=== PATIENT | female | born 1970 | race Caucasian/White ===

== ENCOUNTER → 2023-07-10 | Emergency (ER) | payer OTHER ==
[~2023-07-10] MED LIST: KETOROLAC 30 MG/ML INJ ONE; MORPHINE 4 MG/ML SYR ONE; NA CHLORIDE 0.9% 1,000 ML ONE; NA CHLORIDE 0.9% 100 ML ONE; NS KCL 20MEQ 1,000 ML IV ONE; ONDANSETRON 4 MG/2 ML VIAL ONE; PIPERACIL/TAZO 3.375 GM VIAL IV ONE
--- OUTSIDE RECORDS SUMMARY | 2023-07-10 07:27 | XMS REPORT | Continuity of Care Document ---
Author Name Unknown Address [address] [facility] [address] [place] [address] [facility] Address [address] [facility] 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 Phone Carla Torres Attending Clinician Unavailable Tabby Carrera Attending Clinician Unavailable CHRETIEN_F Attending Clinician Unavailable WATERS_S Attending Clinician Unavailable CHRETIEN_F Admitting Clinician Unavailable WATERS_S Admitting Clinician Unavailable Payers Payer Name Policy Type Policy Number Effective Date Expirati on Date Source [employer] (MEDICARE REPLACEMENT/ADV ANTAGE - HMO) [id number] [place]IC[place]: SERGEY MORSE [facility] [id number] 2009 00:00:00 MEDICARE [facility] [id number] 2009 00:00:00 [facility] MEDICAID [id number] [facility] AARP MEDICARE ADVANTAGE [employer] C1 [id number] 2020 00:00:00 [facility] Problems Condition Name Condition Details Condition Category Status Onset Date Resolution Date Last Treatment Date Treating Clinician Comments Source [id number] Psoriatic arthritis Problem [facility] [id number] Chronic fatigue Problem [facility] [id number] COVID Problem [facility] [id number] Fever, unspecifie d Problem [facility] [id number] Non-produc tive cough Problem [facility] [id number] Sleep apnea, unspecifie d type Problem [facility] [id number] Intractabl e migraine without aura and with status migrainosu s Problem [facility] Chronic pain syndrome Chronic pain disorder Problem [facility] Psoriasis Psoriasis Problem Comm on [facility] Acquired hypothyroi dism Acquired hypothyroi dism Problem [facility] [id number] Vaginal atrophy Problem [facility] Allergies, Adverse Reactions, Alerts Allergy Name Allergy Type Status Severity Reaction(s) Onset Date Inactive Date Treating Clinician Comments Source 0 Drug allergy Active hives [facility] Social History Social Habit Start Date Stop Date Quantity Comments Source History of Tobacco Use Current Smoker [facility] Sex Assigned At [facility] Smoking Status Start Date Stop Date Source Current Smoker 2023-04-28 00:00:00 [facility] Medications Ordered Medication Name Filled Medication Name Start Date Stop Date Current Medication? Ordering Clinician Indication Dosage Frequency Signature (SIG) Comments Components Source Topiramate 25 MG Topiramate 25 MG 11-15 00:00: 00 No 1{table t} BID Topiramate 25 MG Topiramate 25 MG Topiramate 25 MG 11-15 00:00: 00 No 1{table t} BID Topiramate 25 MG Topiramate 25 MG Topiramate 25 MG 11-15 00:00: 00 No 1{table t} BID Topiramate 25 MG Topiramate 25 MG Topiramate 25 MG 11-15 00:00: 00 No 1{table t} BID Topiramate 25 MG Topiramate 25 MG Topiramate 25 MG 11-15 00:00: 00 No 1{table t} BID Topiramate 25 MG Topiramate 25 MG Topiramate 25 MG 2020-11-15 00:00: 00 No 1{table t} BID Topiramate 25 MG Topiramate 25 MG Topiramate 25 MG 11-15 00:00: 00 No 1{table t} BID Topiramate 25 MG Estradiol 0.1 MG/GM Estradiol 0.1 MG/GM 11-09 00:00: 00 No QD Estradiol 0.1 MG/GM Levothyroxi ne Sodium Levothyroxi ne Sodium 09-08 00:00: 00 Yes Barb Torres 1 tablet on an empty stomach in the morning [facility] Levothyroxi ne Sodium 125 MCG Levothyroxi ne Sodium 125 MCG 09-08 00:00: 00 No QD Levothyrox ine Sodium 125 MCG Zubsolv 5.7-1.4 MG Zubsolv 5.7-1.4 MG No 1{table t_under _the_to ngue_an d_allow _to_dis solve} QD Zubsolv 5.7-1.4 MG DULoxetine HCl 20 MG DULoxetine HCl 20 MG No 1{capsu le} QD DULoxetine HCl 20 MG Levothyroxi ne Sodium 125 MCG Levothyroxi ne Sodium 125 MCG No QD Levothyrox ine Sodium 125 MCG Ondansetron HCl 8 MG Ondansetron HCl 8 MG No 1{table t_as_ne eded} QD Ondansetro n HCl 8 MG traZODone HCl 100 MG traZODone HCl 100 MG No 1{table t_at_be dtime} QD traZODone HCl 100 MG Zubsolv 5.7-1.4 MG Zubsolv 5.7-1.4 MG No 1{table t_under _the_to ngue_an d_allow _to_dis solve} QD Zubsolv 5.7-1.4 MG DULoxetine HCl 20 MG DULoxetine HCl 20 MG No 1{capsu le} QD DULoxetine HCl 20 MG Levothyroxi ne Sodium 125 MCG Levothyroxi ne Sodium 125 MCG No QD Levothyrox ine Sodium 125 MCG Ondansetron HCl 8 MG Ondansetron HCl 8 MG No 1{table t_as_ne eded} QD Ondansetro n HCl 8 MG traZODone HCl 100 MG traZODone HCl 100 MG No 1{table t_at_be dtime} QD traZODone HCl 100 MG Zubsolv 5.7-1.4 MG Zubsolv 5.7-1.4 MG No 1{table t_under _the_to ngue_an d_allow _to_dis solve} QD Zubsolv 5.7-1.4 MG DULoxetine HCl 20 MG DULoxetine HCl 20 MG No 1{capsu le} QD DULoxetine HCl 20 MG Levothyroxi ne Sodium 125 MCG Levothyroxi ne Sodium 125 MCG No QD Levothyrox ine Sodium 125 MCG Ondansetron HCl 8 MG Ondansetron HCl 8 MG No 1{table t_as_ne eded} QD Ondansetro n HCl 8 MG traZODone HCl 100 MG traZODone HCl 100 MG No 1{table t_at_be dtime} QD traZODone HCl 100 MG traZODone HCl 100 MG traZODone HCl 100 MG No 1{table t_at_be dtime} QD traZODone HCl 100 MG Levothyroxi ne Sodium 125 MCG Levothyroxi ne Sodium 125 MCG No QD Levothyrox ine Sodium 125 MCG Ondansetron HCl 8 MG Ondansetron HCl 8 MG No 1{table t_as_ne eded} QD Ondansetro n HCl 8 MG DULoxetine HCl 20 MG DULoxetine HCl 20 MG No 1{capsu le} QD DULoxetine HCl 20 MG Zubsolv 5.7-1.4 MG Zubsolv 5.7-1.4 MG No 1{table t_under _the_to ngue_an d_allow _to_dis solve} QD Zubsolv 5.7-1.4 MG traZODone HCl 100 MG traZODone HCl 100 MG No 1{table t_at_be dtime} QD traZODone HCl 100 MG Levothyroxi ne Sodium 125 MCG Levothyroxi ne Sodium 125 MCG No QD Levothyrox ine Sodium 125 MCG Ondansetron HCl 8 MG Ondansetron HCl 8 MG No 1{table t_as_ne eded} QD Ondansetro n HCl 8 MG DULoxetine HCl 20 MG DULoxetine HCl 20 MG No 1{capsu le} QD DULoxetine HCl 20 MG Zubsolv 5.7-1.4 MG Zubsolv 5.7-1.4 MG No 1{table t_under _the_to ngue_an d_allow _to_dis solve} QD Zubsolv 5.7-1.4 MG traZODone HCl 100 MG traZODone HCl 100 MG No 1{table t_at_be dtime} QD traZODone HCl 100 MG Levothyroxi ne Sodium 125 MCG Levothyroxi ne Sodium 125 MCG No QD Levothyrox ine Sodium 125 MCG Ondansetron HCl 8 MG Ondansetron HCl 8 MG No 1{table t_as_ne eded} QD Ondansetro n HCl 8 MG DULoxetine HCl 20 MG DULoxetine HCl 20 MG No 1{capsu le} QD DULoxetine HCl 20 MG Zubsolv 5.7-1.4 MG Zubsolv 5.7-1.4 MG No 1{table t_under _the_to ngue_an d_allow _to_dis solve} QD Zubsolv 5.7-1.4 MG Zubsolv 5.7-1.4 MG Zubsolv 5.7-1.4 MG No 1{table t_under _the_to ngue_an d_allow _to_dis solve} QD Zubsolv 5.7-1.4 MG traZODone HCl 100 MG traZODone HCl 100 MG No 1{table t_at_be dtime} QD traZODone HCl 100 MG Levothyroxi ne Sodium 125 MCG Levothyroxi ne Sodium 125 MCG No QD Levothyrox ine Sodium 125 MCG traZODone HCl 100 MG traZODone HCl 100 MG No 1{table t_at_be dtime} QD traZODone HCl 100 MG Estradiol 0.1 MG/GM Estradiol 0.1 MG/GM No QD Estradiol 0.1 MG/GM Zubsolv 5.7-1.4 MG Zubsolv 5.7-1.4 MG No 1{table t_under _the_to ngue_an d_allow _to_dis solve} QD Zubsolv 5.7-1.4 MG Levothyroxi ne Sodium 125 MCG Levothyroxi ne Sodium 125 MCG No QD Levothyrox ine Sodium 125 MCG traZODone HCl 100 MG traZODone HCl 100 MG No 1{table t_at_be dtime} QD traZODone HCl 100 MG Estradiol 0.1 MG/GM Estradiol 0.1 MG/GM No QD Estradiol 0.1 MG/GM Zubsolv 5.7-1.4 MG Zubsolv 5.7-1.4 MG No 1{table t_under _the_to ngue_an d_allow _to_dis solve} QD Zubsolv 5.7-1.4 MG Estradiol 0.1 MG/GM Estradiol 0.1 MG/GM No QD Estradiol 0.1 MG/GM Zubsolv 5.7-1.4 MG Zubsolv 5.7-1.4 MG No 1{table t_under _the_to ngue_an d_allow _to_dis solve} QD Zubsolv 5.7-1.4 MG Levothyroxi ne Sodium 125 MCG Levothyroxi ne Sodium 125 MCG No QD Levothyrox ine Sodium 125 MCG traZODone HCl 100 MG traZODone HCl 100 MG No 1{table t_at_be dtime} QD traZODone HCl 100 MG Zubsolv 5.7-1.4 MG Zubsolv 5.7-1.4 MG No 1{table t_under _the_to ngue_an d_allow _to_dis solve} QD Zubsolv 5.7-1.4 MG traZODone HCl 100 MG traZODone HCl 100 MG No 1{table t_at_be dtime} QD traZODone HCl 100 MG Estradiol 0.1 MG/GM Estradiol 0.1 MG/GM No QD Estradiol 0.1 MG/GM Levothyroxi ne Sodium 125 MCG Levothyroxi ne Sodium 125 MCG No QD Levothyrox ine Sodium 125 MCG Zubsolv 5.7-1.4 MG Zubsolv 5.7-1.4 MG No 1{table t_under _the_to ngue_an d_allow _to_dis solve} QD Zubsolv 5.7-1.4 MG traZODone HCl 100 MG traZODone HCl 100 MG No 1{table t_at_be dtime} QD traZODone HCl 100 MG Estradiol 0.1 MG/GM Estradiol 0.1 MG/GM No QD Estradiol 0.1 MG/GM Levothyroxi ne Sodium 125 MCG Levothyroxi ne Sodium 125 MCG No QD Levothyrox ine Sodium 125 MCG Zubsolv 5.7-1.4 MG Zubsolv 5.7-1.4 MG No 1{table t_under _the_to ngue_an d_allow _to_dis solve} QD Zubsolv 5.7-1.4 MG traZODone HCl 100 MG traZODone HCl 100 MG No 1{table t_at_be dtime} QD traZODone HCl 100 MG Estradiol 0.1 MG/GM Estradiol 0.1 MG/GM No QD Estradiol 0.1 MG/GM Levothyroxi ne Sodium 125 MCG Levothyroxi ne Sodium 125 MCG No QD Levothyrox ine Sodium 125 MCG Levothyroxi ne Sodium 125 MCG Levothyroxi ne Sodium 125 MCG No QD Levothyrox ine Sodium 125 MCG Zubsolv 5.7-1.4 MG Zubsolv 5.7-1.4 MG No 1{table t_under _the_to ngue_an d_allow _to_dis solve} QD Zubsolv 5.7-1.4 MG traZODone HCl 100 MG traZODone HCl 100 MG No 1{table t_at_be dtime} QD traZODone HCl 100 MG Estradiol 0.1 MG/GM Estradiol 0.1 MG/GM No QD Estradiol 0.1 MG/GM Immunizations Ordered Immunization Name Filled Immunization Name Date Status Comments Source Flucelvax - single dose syringe Flucelvax - single dose syringe 2022-04-24 14:31:00 Completed [facility] Flucelvax - single dose syringe Flucelvax - single dose syringe Unknown Completed [facility] Flucelvax - single dose syringe Flucelvax - single dose syringe Unknown Completed [facility] Flucelvax - single dose syringe Flucelvax - single dose syringe Unknown Completed [facility] Flucelvax - single dose syringe Flucelvax - single dose syringe Unknown Completed [facility] Flucelvax (ccIIV4) - SDS - 0.5mL Flucelvax (ccIIV4) - SDS - 0.5mL Unknown Completed [facility] Flucelvax (ccIIV4) - SDS - 0.5mL Flucelvax (ccIIV4) - SDS - 0.5mL Unknown Completed [facility] Vital Signs Vital Name Observation Time Observation Value Comments Kristina moody height 2023-04-28 16:20:00 65 [in_i] Commo n [facility] weight 2023-04-28 16:20:00 150 [lb_av] Comm on [facility] temperature 2023-04-28 16:20:00 98.6 [degF] Com mon [facility] bmi 2023-04-28 16:20:00 24.96 kg/m2 Comm on [facility] height 2022-11-14 16:00:00 65 [in_i] Commo n [facility] weight 2022-11-14 16:00:00 146.6 [lb_av] Co mmon [facility] temperature 2022-11-14 16:00:00 97.3 [degF] Com [facility] bmi 2022-11-14 16:00:00 24.39 kg/m2 Comm on [facility] oximetry 2022-11-14 16:00:00 95 % Commo n [facility] respiratory rate 2022-11-14 16:00:00 15 /min [facility] blood pressure systolic 2022-11-14 16:00:00 121 mm[Hg] [facility] blood pressure diastolic 2022-11-14 16:00:00 51 mm[Hg] Common [facility] height 2022-08-15 16:20:00 65 [in_i] Commo n [facility] weight 2022-08-15 16:20:00 149 [lb_av] Comm on [facility] temperature 2022-08-15 16:20:00 97.4 [degF] Com [facility] bmi 2022-08-15 16:20:00 24.79 kg/m2 Comm on [facility] oximetry 2022-08-15 16:20:00 97 % Commo n [facility] respiratory rate 2022-08-15 16:20:00 16 /min [facility] blood pressure systolic 2022-08-15 16:20:00 119 mm[facility]Hg[facility] blood pressure diastolic 2022-08-15 16:20:00 61 mm[Hg] [facility] height 2022-04-24 14:20:00 65 [in_i] Commo n [facility] weight 2022-04-24 14:20:00 145 [lb_av] Comm on [facility] temperature 2022-04-24 14:20:00 98.4 [degF] Com mon [facility] bmi 2022-04-24 14:20:00 24.13 kg/m2 Comm on [facility] oximetry 2022-04-24 14:20:00 98 % Commo n [facility] respiratory rate 2022-04-24 14:20:00 16 /min [facility] blood pressure systolic 2022-04-24 14:20:00 110 mm[Hg] [facility] blood pressure diastolic 2022-04-24 14:20:00 57 mm[Hg] [facility] height 2022-02-22 14:00:00 65 [in_i] Commo n [facility] weight 2022-02-22 14:00:00 152.2 [lb_av] Co mmon [facility] temperature 2022-02-22 14:00:00 97.6 [degF] Com mon [facility] bmi 2022-02-22 14:00:00 25.32 kg/m2 Comm on [facility] oximetry 2022-02-22 14:00:00 98 % Commo n [facility] respiratory rate 2022-02-22 14:00:00 16 /min [facility] blood pressure systolic 2022-02-22 14:00:00 136 mm[Hg] [facility] blood pressure diastolic 2022-02-22 14:00:00 60 mm[Hg] [facility] height 2022-02-22 14:40:00 65 [in_i] Commo n [facility] weight 2022-02-22 14:40:00 152.2 [lb_av] Co mmon [facility] temperature 2022-02-22 14:40:00 97.6 [degF] Com mon [facility] bmi 2022-02-22 14:40:00 25.32 kg/m2 Comm on [facility] oximetry 2022-02-22 14:40:00 98 % Commo n [facility] respiratory rate 2022-02-22 14:40:00 16 /min [facility] blood pressure systolic 2022-02-22 14:40:00 136 mm[Hg] [facility] blood pressure diastolic 2022-02-22 14:40:00 60 mm[Hg] [facility] Encounters Start Date/Time End Date/Time Encounter Type Admission Type Attending [facility] Care Department Encounter ID Source 2022-07-22 13:57:01 Outpatient Carla Torres [facility] [id number] [facility] 2022-04-22 14:31:00 [facility] [id number] [facility] 2022-02-22 07:53:00 Outpatient [facility] [id number] [facility] 2022-02-20 11:29:00 Outpatient Tabby Carrera [facility] [id number] [facility] 2022-02-05 10:17:00 Outpatient Tabby Carrera [facility] [id number] [facility] 2021-07-11 14:02:55 Outpatient Carla Torres [facility] [id number] [facility] 2021-07-11 14:02:24 Outpatient Carla Torres [facility] [id number] [facility] 2021-07-11 12:54:30 Outpatient Carla Torres [facility] [id number] [facility] 2023-04-28 00:00:00 2023-04-28 00:00:00 OFFICE VISIT ESTAB PT LEVEL 3 [facility] [id number] [facility] 2023-03-17 00:00:00 2023-03-17 00:00:00 (TEL) [facility] [id number] [facility] 2022-11-14 00:00:00 2022-11-14 00:00:00 OFFICE VISIT ESTAB PT LEVEL 3 [facility] [id number] [facility] 2022-09-20 00:00:00 2022-09-20 00:00:00 (TEL) [facility] [id number] [facility] 2022-08-15 00:00:00 2022-08-15 00:00:00 OFFICE VISIT ESTAB PT LEVEL 4 [facility] [id number] [facility] 2022-07-26 00:00:00 2022-07-26 00:00:00 (TEL) [facility] [id number] [facility] 2022-04-24 00:00:00 2022-04-24 00:00:00 OFFICE VISIT EST PT LEVEL 3 [facility] [id number] [facility] 2022-02-22 00:00:00 2022-02-22 00:00:00 OFFICE VISIT EST PT LEVEL 3 [facility] [id number] [facility] 2022-02-22 00:00:00 2022-02-22 00:00:00 SUB ANNUAL [facility] WELLNESS VISIT [facility] [id number] [facility] 2022-02-22 00:00:00 2022-02-22 00:00:00 (TEL) [facility] [id number] [facility] 2022-02-13 00:00:00 2022-02-13 00:00:00 (TEL) [facility] [id number] [facility] 2022-02-05 00:00:00 2022-02-05 00:00:00 Outpatient CHRETIEN_F [facility] [id number] [facility] 2022-02-05 00:00:00 2022-02-05 00:00:00 (TEL) [facility] [id number] [facility] 2022-02-05 00:00:00 2022-02-05 00:00:00 (TEL) [facility] [id number] [facility] 2021-04-16 03:01:00 2021-04-16 03:01:00 Outpatient WATERS_S [facility] [id number] [facility] 2021-03-06 00:00:00 2021-03-06 00:00:00 (TEL) [facility] [id number] [facility] 2020-12-19 00:00:00 2020-12-19 00:00:00 Outpatient [facility] [id number] [facility] 2020-11-15 00:00:00 2020-11-15 00:00:00 Outpatient [facility] [id number] [facility] 2020-11-09 00:00:00 2020-11-09 00:00:00 Outpatient [facility] [id number] [facility] 2018-01-19 14:46:00 2018-01-19 14:46:00 [facility] [id number] [facility] 2018-01-13 11:54:00 2018-01-13 11:54:00 [facility] [id number] [facility] 2017-11-14 14:21:00 2017-11-14 14:21:00 Outpatient [facility] [id number] [facility] 2017-11-06 14:20:00 2017-11-06 14:20:00 Outpatient [facility] Medicine [id number] [facility] 2017-09-08 16:21:00 2017-09-08 16:21:00 Outpatient [facility] [id number] [facility] 2017-09-02 14:15:00 2017-09-02 14:15:00 Outpatient [facility] [id number] [facility]
[2023-07-10 08:08] LABS: Hematocrit 39.2 % (36.0-45.0); Lymphocytes % 20.3 % (15.3-44.8); MPV 8.9 fL (7.6-11.3); Platelets 247 thou/uL (152-406); RBC Red Blood Cell Count 4.13 M/uL (3.86-4.86)
[2023-07-10 08:09] LABS: Absolute Lymphocytes (CBC) 1.4 K/uL (0.7-4.9)
[2023-07-10 08:20] LABS: Potassium 3.1 mEq/L (3.5-5.1)
[2023-07-10 08:21] LABS: Albumin 3.8 g/dL (3.4-5.0); Bilirubin Total 0.6 mg/dL (0.2-1.0); Protein, Total 7.9 g/dL (6.4-8.2)
--- NOTE | 2023-07-10 09:20 | RAD REPORT ---
EXAM DESCRIPTION: CT - Abdomen Pelvis W Contrast - 07/10/2023 8:05 am CLINICAL HISTORY: Abd pain;Pain COMPARISON: CT ABD PELVIS W CONTRAST dated 12/17/2013 TECHNIQUE: Thin cut axial CT imaging of the abdomen and pelvis was performed following intravenous a dministration of 100 mL Isovue 300. Multiplanar reformats were generated and reviewed. All CT scans are performed using dose optimization technique as appropriate and may include automated exposure control or mA/KV adjustment according to patient size. FINDINGS: No suspicious findings in the lung bases. The liver, spleen, adrenal glands, and pancreas show no suspicious findings. Gallbladder and biliary tree are also without suspicious finding. Gallbladder is normal in appearance. There is prominence of the common bile duct, measuring 8 mm in c aliber. The main pancreatic duct is also prominent to the level of the distal body, measuring 5 mm in caliber. Mild intrahepatic biliary ductal dilation. Symmetric renal function is seen with no hydronephrosis or suspicious renal mass. No dilated bowel loops or bowel wall thickening. Trace free ascites, may be physiologic. No free air, fluid collections, or inflammatory stranding. No hernia, mass or bulky lymphadenopathy. The urinary bladder is decompressed limiting evaluation. No suspicious bony findings. Sequelae of T12-L2 fusion/reconstruction, with bone cage in place. IMPRESSION: Prominent caliber of the common bile duct, main pancreatic duct, with mild intrahepatic biliary ductal dilation. Correlate with adenoma also, and consider additional evaluation by upper end oscopy if there is concern for obstruction at the level of the ampulla. Trace free ascites, nonspecific. No other inflammatory changes in the abdomen and pelvis.
[2023-07-10 10:05] LABS: Specific Gravity > 1.030 (1.005-1.030); Urine Bacteria None Seen /HPF (<20); Urine Bilirubin NEGATIVE (Negative); Urine Blood Trace (Negative); Urine Clarity Clear (Clear); Urine Color Light-Yellow (Yellow); Urine Glucose NEGATIVE (Negative); Urine Protein 1+ (Negative); Urine Urobilinogen Normal (Normal); Urine pH 6.5 (5.0-7.0)
--- NOTE | 2023-07-10 10:13 | RAD REPORT ---
EXAM DESCRIPTION: US - Abdomen Exam Limited - 07/10/2023 9:48 am CLINICAL HISTORY: ABD PAIN COMPARISON: Abdomen Pelvis W Contrast dated 07/10/2023 TECHNIQUE: Sonographic grayscale and color flow images of the right upper abdominal quadrant were o btained. FINDINGS: The gallbladder demonstrates no gallstones. No pericholecystic fluid or gallbladder wall t hickening. The common bile duct is prominent measuring 8 mm. Minimal intrahepatic biliary ductal dila tion. No evidence of a common duct calculus. IMPRESSION: Prominent common bile duct measuring 8 mm in caliber with minimal intrahepatic biliary d uctal dilation. No evidence of cholelithiasis or choledocholithiasis.
--- NOTE | 2023-07-10 11:16 | RAD REPORT ---
EXAM DESCRIPTION: MRI - Cholangiogram - 07/10/2023 10:48 am CLINICAL HISTORY: Side pain COMPARISON: Abdomen Exam Limited dated 07/10/2023; Abdomen Pelvis W Contrast dated 07/10/2023 TECHNIQUE: Multiplanar multisequence MRI of the abdomen, obtained without IV contrast, utilizing [employer] sequences. FINDINGS: The gallbladder is normally distended without filling defects to suggest calculi. Mild intrahepatic biliary ductal dilation. Common bile duct is dilated in caliber, 8 millimeter. Abrupt tapering at the level of the distal comm on bile duct, may suggest an impacted calculus versus a stricture or small mass. Main pancreatic duct is also prominent measuring 5 mm in caliber. The visualized aspects of the liver, spleen, adrenal glands, pancreas, and kidneys are unremarkable. Visualized aspects of the bowel are unremarkable. No suspicious osseous lesions. Trace bilateral pleural effusions IMPRESSION: Abrupt tapering at the level of the distal common bile duct, which may suggest an active calculus versus a stricture or small mass. Gastroenterology referral is recommended if not already o btained, for consideration of ERCP.
--- NOTE | 2023-07-10 11:55 | ER ---
Nurse's Notes [facility] Name: Dana Foster Age: 53 yrs Sex: Female : 1970 Arrival Date: 07/10/2023 Time: 07:25 Bed 20 Private MD: Diagnosis: Epigastric abdominal tenderness;Other specified diseases of biliary tract-dilated CBD;Hypokalemia Presentation: 07/10 07:47 Chief complaint: Patient states: RLQ pain that began yesterday, diarrhea and nausea. aa5 Denies vomiting. Coronavirus screen: diarrhea. Ebola Screen: Patient denies travel to an Ebola-affected area in the 21 days before illness onset. Initial Sepsis Screen: Does the patient meet any 2 criteria? No. Patient's initial sepsis screen is negative. Does the patient have a suspected source of infection? No. Patient's initial sepsis screen is negative. Risk Assessment: Do you want to hurt yourself or someone else? Patient reports no desire to harm self or others. Onset of symptoms was June 2023. 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 - Social history:: Smoking status: Patient reports the use of cigarette tobacco products. - Family history:: not pertinent. Screenin:59 [facility] ED Fall Risk Assessment (Adult) History of falling in the last 3 months, cm10 including since admission No falls in past 3 months (0 pts) Confusion or Disorientation No (0 pts) Intoxicated or Sedated No (0 pts) Impaired Gait No (0 pts) Mobility Assist Device Used No (0 pt) Altered Elimination No (0 pt) Score/Fall Risk Level 0 - 2 = Low Risk Oriented to surroundings, Maintained a safe environment, Hourly rounding (assess needs \T\ fall precautionary measures) done. Abuse screen: Denies threats or abuse. Denies injuries from another. Nutritional screening: No deficits noted. Tuberculosis screening: No symptoms or risk factors identified. Assessment: 07:50 General: Appears in no apparent distress. uncomfortable, Behavior is calm, cooperative. rs5 Pain: Complains of pain in right lower quadrant Pain radiates to lower back Pain currently is 8 out of 10 on a pain scale. Quality of pain is described as aching, Pain began 2-3 days ago. Is continuous. Neuro: Level of Consciousness is awake, alert, obeys commands, Oriented to person, place, time, situation. Cardiovascular: Heart tones S1 S2 present Patient's skin is warm and dry. Rhythm is regular. Respiratory: Airway is patent Respiratory effort is even, unlabored, Respiratory pattern is regular, symmetrical, Breath sounds are clear bilaterally. GI: Bowel sounds present X 4 quads. Abd is soft and non tender X 4 quads. 07:58 Reassessment: Pt to CT via wheelchair . aa5 11:30 Pain: Complains of pain in right lower quadrant Pain radiates to lower back Pain rs5 currently is 7 out of 10 on a pain scale. Quality of pain is described as aching, Is continuous. 11:30 Reassessment: Patient and/or family updated on plan of care and expected duration. Pain rs5 level reassessed. Patient is alert, oriented x 3, equal unlabored respirations, skin warm/dry/pink. 12:06 Reassessment: Patient and/or family updated on plan of care and expected duration. Pain rs5 level reassessed. Patient is alert, oriented x 3, equal unlabored respirations, skin warm/dry/pink. Patient denies pain at this time. Patient states feeling better. Patient states symptoms have improved. 12:58 Reassessment: Pt states that she does not want to change into a gown until she gets to [address] Pt states that her heart rate is normally in the 40s. 13:06 Reassessment: Pt rates pain a 4/10 on pain scale. Pt states that she would not [facility] anything for pain at this time. . 13:40 Reassessment: Pt requesting pain medicine prior to being transferred. Per Dr. Lcuero, 10 pt can receive an additional dose of Morphine 4mg IVP. Dr. Lucero made aware of pt's heart rate being 38 and states that it is ok to give medication. 13:42 Reassessment: Report given to [facility] who assumes care of patient. cm10 Pt A\T\Ox4, respirations even and unlabored at this time. Pt stable for transport at this time. Vital Signs: 07:47 BP 119 / 80; Pulse 65; Resp 16 S; Temp 98.2(TE); Pulse Ox 100% on R/A; Weight 65.77 kg aa5 (R); Height 5 ft. 6 in. (R); 08:00 BP 142 / 65; Pulse 71; Resp 16; Pulse Ox 97% ; cm10 09:00 BP 130 / 66; Pulse 43; Resp 16; Pulse Ox 97% on R/A; cm10 10:00 BP 121 / 56; Pulse 46; Resp 16; Pulse Ox 100% on R/A; cm10 11:00 BP 122 / 61; Pulse 44; Resp 16; Pulse Ox 100% on R/A; cm10 12:00 BP 124 / 66; Pulse 42; Resp 16; Pulse Ox 99% on R/A; cm10 13:00 BP 119 / 61; Pulse 38; Resp 16; Pulse Ox 99% ; cm10 07:47 Body Mass Index 23.40 (65.77 kg, 167.64 cm) aa5 ED Course: 07:27 Patient arrived in ED. mg5 07:29 Dez Lucero MD is Attending Physician. merissa 07:47 Arm band placed on. aa5 07:48 Triage completed. aa5 07:57 Initial lab(s) drawn, by me, sent to lab. Inserted saline lock: 20 gauge in right aa5 forearm, using aseptic technique. Blood collected. 08:07 CT Abd/Pelvis - IV Contrast Only In Process Unspecified. EDMS 09:20 Mihai Nascimento, RN is Primary Nurse. rs5 09:50 US Abdomen Limited In Process Unspecified. EDMS 10:50 Cholangiogram In Process Unspecified. EDMS 12:59 Patient has correct armband on for positive identification. Bed in low position. Call cm10 light in reach. Provided Education on: Need for transfer.. 13:42 No provider procedures requiring assistance completed. Patient transferred, IV remains cm10 in place. Administered Medications: 09:00 Drug: NS 0.9% IV 1000 ml IV at 1 bolus Per protocol; 1000 mL bolus Route: IV; Rate: 1 rs5 bolus; Site: right wrist; 13:36 Follow up: IV Status: Completed infusion 10 09:00 Drug: TORadol - Ketorolac IVP 15 mg IVP once Route: IVP; Site: right wrist; rs5 13:36 Follow up: Response: No adverse reaction cm10 09:00 Drug: Ondansetron IVP 4 mg IVP once; over 2 minutes Route: IVP; Site: right wrist; rs5 13:36 Follow up: Response: No adverse reaction cm10 09:00 Drug: morphine IVP or IV 4 mg IVP once over 4 mins Route: IVP; Infused Over: 4 mins; rs5 Site: right wrist; 13:36 Follow up: Response: No adverse reaction cm10 11:43 Drug: morphine IVP or IV 4 mg IVP once over 4 mins Route: IVP; Infused Over: 4 mins; rs5 Site: right wrist; 12:06 Follow up: Response: No adverse reaction; Pain is decreased rs5 11:43 Drug: Ondansetron IVP 4 mg IVP once; over 2 minutes Route: IVP; Site: right wrist; rs5 12:06 Follow up: Response: No adverse reaction rs5 12:05 Drug: Piperacillin-Tazobactam IVPB 3.375 grams IVPB once over 60 mins; (mix in NS 100 rs5 mL) Route: IVPB; Infused Over: 60 mins; Site: right wrist; 12:48 Follow up: Response: No adverse reaction; IV Status: Completed infusion me1 12:55 Drug: NS 0.9% with KCl IV 20 mEq/L 1000 ml IV at 125 ml/hr continuous Route: IV; Rate: rs5 125 ml/hr; Site: right wrist; 13:41 Follow up: Response: No adverse reaction; IV Status: Infusion continued upon transfer cm10 13:41 Drug: morphine IVP or IV 4 mg IVP once over 4 mins Route: IVP; Infused Over: 4 mins; cm10 Site: right wrist; 13:42 Follow up: Response: No adverse reaction cm10 Medication: 13:43 VIS not applicable for this client. cm10 Outcome: 11:55 ER care complete, transfer ordered by MD. craven 13:42 Transferred by [facility]. to [facility], Transfer cm10 form completed. X-rays sent w/ patient. 13:42 Condition: good 13:42 Instructed on the need for transfer, 13:44 Patient left the ED. cm10 Signatures: Dispatcher MedHoDez Guardado MD MD cha Calderon, Audri, RN RN aa5 Mihai Nascimento RN RN rs5 Aisha Elder RN RN cm10 Dana Pascual RN RN me1 Sirena Ladd mg5 Corrections: (The following items were deleted from the chart) 13:40 12:58 Reassessment: Pt states that she does not want to change into a gown until she cm10 gets to [place]. cm10
--- NOTE | 2023-07-10 11:55 | EDPHYS ---
Physician Documentation [facility] Name: Dana Foster Age: 53 yrs Sex: Female : 1970 Arrival Date: 07/10/2023 Time: : Bed 20 Private MD: ZONIA Physician Dez Lucero HPI: 07/10 09:10 This 53 yrs old Female presents to ER via Ambulatory with complaints of Side merissa Pain. 09:10 The patient presents with abdominal pain in the lower abdomen. Onset: The merissa symptoms/episode began/occurred 2 day(s) ago. The patient presents to the emergency department with nausea, vomiting, abdominal pain, of the posterior aspect of right lateral abdomen and right lower quadrant. Onset: The symptoms/episode began/occurred yesterday. Possible causes: unknown. The symptoms are aggravated by nothing. The symptoms are alleviated by nothing. Associated signs and symptoms: The patient has no apparent associated signs or symptoms. Associated signs and symptoms: none. Historical: - Allergies: 07:48 Sulfa (Sulfonamide Antibiotics); aa5 - PMHx: 07:48 Hypothyroidism; fusion of T11- L2; aa5 - PSHx: 07:48 section; hysterectomy; aa5 - Immunization history:: Adult Immunizations unknown. - Social history:: Smoking status: Patient reports the use of cigarette tobacco products. - Family history:: not pertinent. ROS: 09:10 Constitutional: Negative for fever, chills, and weight loss, Eyes: Negative for injury, merissa pain, redness, and discharge, ENT: Negative for injury, pain, and discharge, Neck: Negative for injury, pain, and swelling, Cardiovascular: Negative for chest pain, palpitations, and edema, Respiratory: Negative for shortness of breath, cough, wheezing, and pleuritic chest pain, Back: Negative for injury and pain, : Negative for injury, bleeding, discharge, and swelling, MS/Extremity: Negative for injury and deformity, Skin: Negative for injury, rash, and discoloration, Neuro: Negative for headache, weakness, numbness, tingling, and seizure, Psych: Negative for depression, anxiety, suicide ideation, homicidal ideation, and hallucinations, Allergy/Immunology: Negative for hives, rash, and allergies, Endocrine: Negative for neck swelling, polydipsia, polyuria, polyphagia, and marked weight changes, Hematologic/Lymphatic: Negative for swollen nodes, abnormal bleeding, and unusual bruising, 09:10 Abdomen/GI: Positive for abdominal pain, nausea, vomiting, abdominal distension, of the right lower quadrant, Exam: 09:10 Constitutional: This is a well developed, well nourished patient who is awake, alert, merissa and in no acute distress. Head/Face: Normocephalic, atraumatic. Eyes: Pupils equal round and reactive to light, extra-ocular motions intact. Lids and lashes normal. Conjunctiva and sclera are non-icteric and not injected. Cornea within normal limits. Periorbital areas with no swelling, redness, or edema. ENT: Nares patent. No nasal discharge, no septal abnormalities noted. Tympanic membranes are normal and external auditory canals are clear. Oropharynx with no redness, swelling, or masses, exudates, or evidence of obstruction, uvula midline. Mucous membranes moist. Neck: Trachea midline, no thyromegaly or masses palpated, and no cervical lymphadenopathy. Supple, full range of motion without nuchal rigidity, or vertebral point tenderness. No Meningismus. Chest/axilla: Normal chest wall appearance and motion. Nontender with no deformity. No lesions are appreciated. Cardiovascular: Regular rate and rhythm with a normal S1 and S2. No gallops, murmurs, or rubs. Normal PMI, no JVD. No pulse deficits. Respiratory: Lungs have equal breath sounds bilaterally, clear to auscultation and percussion. No rales, rhonchi or wheezes noted. No increased work of breathing, no retractions or nasal flaring. Back: No spinal tenderness. No costovertebral tenderness. Full range of motion. Female : Normal external genitalia. Skin: Warm, dry with normal turgor. Normal color with no rashes, no lesions, and no evidence of cellulitis. MS/ Extremity: Pulses equal, no cyanosis. Neurovascular intact. Full, normal range of motion. Neuro: Awake and alert, GCS 15, oriented to person, place, time, and situation. Cranial nerves II-XII grossly intact. Motor strength 5/5 in all extremities. Sensory grossly intact. Cerebellar exam normal. Normal gait. Psych: Awake, alert, with orientation to person, place and time. Behavior, mood, and affect are within normal limits. 09:10 Abdomen/GI: Inspection: abdomen appears normal, Bowel sounds: normal, Palpation: moderate abdominal tenderness, in the right lower quadrant, Liver: no appreciated palpable abnormalities, Hernia: not appreciated, Vital Signs: 07:47 BP 119 / 80; Pulse 65; Resp 16 S; Temp 98.2(TE); Pulse Ox 100% on R/A; Weight 65.77 kg aa5 (R); Height 5 ft. 6 in. (R); 08:00 BP 142 / 65; Pulse 71; Resp 16; Pulse Ox 97% ; cm10 09:00 BP 130 / 66; Pulse 43; Resp 16; Pulse Ox 97% on R/A; cm10 10:00 BP 121 / 56; Pulse 46; Resp 16; Pulse Ox 100% on R/A; cm10 11:00 BP 122 / 61; Pulse 44; Resp 16; Pulse Ox 100% on R/A; cm10 12:00 BP 124 / 66; Pulse 42; Resp 16; Pulse Ox 99% on R/A; cm10 13:00 BP 119 / 61; Pulse 38; Resp 16; Pulse Ox 99% ; cm10 07:47 Body Mass Index 23.40 (65.77 kg, 167.64 cm) aa5 MDM: 07:29 Patient medically screened. [facility] 09:12 Differential diagnosis: Nonspecific abd pain, pancreatitis, appendicitis, merissa diverticulitis, appendicitis, bowel obstruction, Cholelithiasis, non-specific abd pain, pancreatitis, Ureterolithiasis, urinary tract infection. Data reviewed: vital signs, nurses notes, lab test result(s), radiologic studies, CT scan. Consideration of Admission/Observation Escalation of care including admission/observation considered. I considered the following discharge prescriptions or medication management in the emergency department Medications were administered in the Emergency Department. See MAR. Independent interpretation of the following test(s) in the Emergency Department CT Scan: My interpretation is ct abd pelvis. Test considered but Not performed: Ultrasound NO ABD USG. Care significantly affected by the following chronic conditions: hypothyroid, L11-L2. 07/10 07:38 Order name: CBC with Diff; Complete Time: 09: [facility] 07/10 07:38 Order name: CMP; Complete Time: : [facility] 07/10 07:38 Order name: Lipase; Complete Time: : [facility] 07/10 07:38 Order name: Urinalysis w/ reflexes; Complete Time: 10:28 [facility] 07/10 07:51 Order name: CT Abd/Pelvis - IV Contrast Only; Complete Time: 10:28 [facility] 07/10 09:24 Order name: US Abdomen Limited; Complete Time: 10:28 [facility] 07/10 09:31 Order name: Cholangiogram; Complete Time: 11:41 [facility] 07/10 07:38 Order name: IV Saline Lock; Complete Time: 07:57 [facility] 07/10 07:38 Order name: Labs collected and sent; Complete Time: 07:57 [facility] Administered Medications: 09:00 Drug: NS 0.9% IV 1000 ml IV at 1 bolus Per protocol; 1000 mL bolus Route: IV; Rate: 1 rs5 bolus; Site: right wrist; 13:36 Follow up: IV Status: Completed infusion cm10 09:00 Drug: TORadol - Ketorolac IVP 15 mg IVP once Route: IVP; Site: right wrist; rs5 13:36 Follow up: Response: No adverse reaction cm10 09:00 Drug: Ondansetron IVP 4 mg IVP once; over 2 minutes Route: IVP; Site: right wrist; rs5 13:36 Follow up: Response: No adverse reaction cm10 09:00 Drug: morphine IVP or IV 4 mg IVP once over 4 mins Route: IVP; Infused Over: 4 mins; rs5 Site: right wrist; 13:36 Follow up: Response: No adverse reaction cm10 11:43 Drug: morphine IVP or IV 4 mg IVP once over 4 mins Route: IVP; Infused Over: 4 mins; rs5 Site: right wrist; 12:06 Follow up: Response: No adverse reaction; Pain is decreased rs5 11:43 Drug: Ondansetron IVP 4 mg IVP once; over 2 minutes Route: IVP; Site: right wrist; rs5 12:06 Follow up: Response: No adverse reaction rs5 12:05 Drug: Piperacillin-Tazobactam IVPB 3.375 grams IVPB once over 60 mins; (mix in NS 100 rs5 mL) Route: IVPB; Infused Over: 60 mins; Site: right wrist; 12:48 Follow up: Response: No adverse reaction; IV Status: Completed infusion me1 12:55 Drug: NS 0.9% with KCl IV 20 mEq/L 1000 ml IV at 125 ml/hr continuous Route: IV; Rate: rs5 125 ml/hr; Site: right wrist; 13:41 Follow up: Response: No adverse reaction; IV Status: Infusion continued upon transfer cm10 13:41 Drug: morphine IVP or IV 4 mg IVP once over 4 mins Route: IVP; Infused Over: 4 mins; cm10 Site: right wrist; 13:42 Follow up: Response: No adverse reaction cm10 Disposition Summary: 07/10/23 11:55 Transfer Ordered Notes: Transfer Location: [facility] merissa Reason: Higher level of care merissa Condition: Stable merissa Problem: new merissa Symptoms: have improved merissa Accepting Physician: to [facility](07/10/23 13:44) cm10 Diagnosis - Epigastric abdominal tenderness merissa - Other specified diseases of biliary tract - dilated CBD merissa - Hypokalemia merissa Forms: - Medication Reconciliation Form merissa - SBAR form merissa Signatures: Dispatcher [employer] EDDez Jorgensen MD MD cha Calderon, Audri RN RN aa5 Mihai Nascimento RN RN rs5 Aisha Elder RN RN cm10 Dana Pascual RN me1 Corrections: (The following items were deleted from the chart) 07:55 07:38 Stone Protocol+CT.RAD.BRZ ordered. EDMS EDMS 08:09 07:38 Test, Urine+UC.LAB.BRZ ordered. EDMS EDMS 12:30 11:[address] [facility] mersisa merissa 13:44 12:[address] [facility] merissa cm10
== END ==
LOC: ER 07:25
DX: R10.816 Epigastric abdominal tenderness (principal); E87.6 Hypokalemia; K83.8 Other specified diseases of biliary tract; E03.9 Hypothyroidism, unspecified; F17.210 Nicotine dependence, cigarettes, uncomplicated; Z88.2 Allergy status to sulfonamides
CPT/HCPCS: 85025; 81001; 36415; 83690; 80053; 74177; 74181; 76705; Q9967; J2543; J2405 ×2; J7030; J3480

== ENCOUNTER 2023-12-09 17:09 | Observation (INO) | payer OTHER ==
[2023-12-09] MEDS ORDERED: TDAP (DIPHTH,PERTUSS(ACELL),TET VAC) 0.5 ML VIAL IMVAC ONE (18:21)
[2023-12-09] MEDS ORDERED: NA CHLORIDE 0.9% 2,000 ML ONE (18:22)
--- NOTE | 2023-12-09 18:46 | RAD REPORT ---
EXAM DESCRIPTION: CT - Head C Spine Cap Wo Con - 12/09/2023 6:02 pm CLINICAL HISTORY: Syncope, fall,neck, chest and abdominal pain TECHNIQUE: Computed axial tomography of head, neck, chest, abdomen and pelvis obtained. IV and oral contrast not requested. Coronal and sagittal reconstruction performed. All CT scans are performed using dose optimization technique as appropriate and may include automated exposure control or mA/KV adjustment according to patient size. COMPARISON: June 2023 ultrasound FINDINGS: An intracranial bleed is not seen. The ventricles are normal in caliber. An extra-axial fluid collection is not noted. Fluid within the sinuses/mastoids is not seen. A cervical fracture is not seen. No dislocation is noted. Spondylosis cervical spine The evaluation of mediastinum, rody, vessels, solid organs and bowel are limited secondary to the lac k of contrast administration. A mediastinal hematoma is not noted. A pleural effusion is not seen. A lung contusion is not present. The liver,spleen, pancreas, adrenals,kidneys and bladder do not demonstrate an acute traumatic injury Postsurgical changes T12 to L2. Mild compression deformity T10 probably chronic. No evidence diverticulitis Mild gallbladder distention without significant change from June 2023 IMPRESSION: No acute intracranial abnormality is seen. A cervical fracture is not visualized. If the patient continues to have symptoms to suggest intracran ial/spinal cord pathology MRI be recommended No acute traumatic abnormality involving the chest, abdomen or pelvis
--- NOTE | 2023-12-09 18:48 | EDPHYS ---
Physician Documentation [facility] Name: Dana Foster Age: 53 yrs Sex: Female : 1970 Arrival Date: 12/09/2023 Time: 17:09 Bed 23 Private MD: ED Physician Dez Lucero HPI: 12/08 18:39 This 53 yrs old Female presents to ER via EMS with complaints of Syncope, merissa Headache. 18:39 The patient has experienced syncope, collapsed, The patient has experienced merissa near-syncope. Onset: The symptoms/episode began/occurred just prior to arrival. Duration: This was a single episode, that lasted 20 second(s). Context: the episode(s) was witnessed, by family, , occurred at a store. Associated injury: Head/face: Neck:. Associated signs and symptoms: Pertinent positives: headache, lightheadedness, weakness. Current symptoms: headache, that is moderate. The patient has experienced similar episodes in the past, several times. 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 - Infectious Disease History:: Denies. - Social history:: Smoking status: Patient reports the use of cigarette tobacco products, smokes one-half pack cigarettes per day. - Family history:: not pertinent. ROS: 18:39 Constitutional: Negative for fever, chills, and weight loss, Eyes: Negative for injury, merissa pain, redness, and discharge, ENT: Negative for injury, pain, and discharge, Neck: Negative for injury, pain, and swelling, Cardiovascular: Negative for chest pain, palpitations, and edema, Respiratory: Negative for shortness of breath, cough, wheezing, and pleuritic chest pain, Abdomen/GI: Negative for abdominal pain, nausea, vomiting, diarrhea, and constipation, Back: Negative for injury and pain, : Negative for injury, bleeding, discharge, and swelling, MS/Extremity: Negative for injury and deformity, Skin: Negative for injury, rash, and discoloration, Psych: Negative for depression, anxiety, suicide ideation, homicidal ideation, and hallucinations, Allergy/Immunology: Negative for hives, rash, and allergies, Endocrine: Negative for neck swelling, polydipsia, polyuria, polyphagia, and marked weight changes, Hematologic/Lymphatic: Negative for swollen nodes, abnormal bleeding, and unusual bruising, 18:39 Neuro: Positive for headache, syncope, of the scalp, Exam: 18:42 Constitutional: This is a well developed, well nourished patient who is awake, alert, merissa and in no acute distress. Head/Face: Normocephalic, atraumatic. Eyes: Pupils equal round and reactive to light, extra-ocular motions intact. Lids and lashes normal. Conjunctiva and sclera are non-icteric and not injected. Cornea within normal limits. Periorbital areas with no swelling, redness, or edema. ENT: Nares patent. No nasal discharge, no septal abnormalities noted. Tympanic membranes are normal and external auditory canals are clear. Oropharynx with no redness, swelling, or masses, exudates, or evidence of obstruction, uvula midline. Mucous membranes moist. Neck: Trachea midline, no thyromegaly or masses palpated, and no cervical lymphadenopathy. Supple, full range of motion without nuchal rigidity, or vertebral point tenderness. No Meningismus. Chest/axilla: Normal chest wall appearance and motion. Nontender with no deformity. No lesions are appreciated. Cardiovascular: Regular rate and rhythm with a normal S1 and S2. No gallops, murmurs, or rubs. Normal PMI, no JVD. No pulse deficits. Respiratory: Lungs have equal breath sounds bilaterally, clear to auscultation and percussion. No rales, rhonchi or wheezes noted. No increased work of breathing, no retractions or nasal flaring. Abdomen/GI: Soft, non-tender, with normal bowel sounds. No distension or tympany. No guarding or rebound. No evidence of tenderness throughout. Back: No spinal tenderness. No costovertebral tenderness. Full range of motion. Skin: Warm, dry with normal turgor. Normal color with no rashes, no lesions, and no evidence of cellulitis. MS/ Extremity: Pulses equal, no cyanosis. Neurovascular intact. Full, normal range of motion. Psych: Awake, alert, with orientation to person, place and time. Behavior, mood, and affect are within normal limits. 18:42 Neuro: Orientation: is normal, appropriate for stated age, no acute changes, Mentation: is normal, appropriate for stated age, no acute changes, Memory: is normal, appropriate for stated age, no acute changes, Cranial nerves: grossly normal, is grossly normal based on the patient's age, no acute changes, Cerebellar function: is grossly normal, is grossly normal based on the patient's age, Motor: is normal, is grossly normal based on the patient's age, no acute changes, moves all fours, strength is 5/5 in all extremities, Sensation: is normal, no obvious gross deficits, appropriate Gait: not tested. Deep tendon reflexes are 2+ (normal) in the bilateral brachioradialis, bicep, tricep and patellar and Achilles tendons, Babinski testing is normal, seizure activity, is not displayed by the patient, 18:56 ECG was reviewed by the Attending Physician. merissa Vital Signs: 17:24 BP 103 / 65; Pulse 50; Resp 17; Temp 97.4; Pulse Ox 100% ; Weight 61.23 kg; Height 5 ll1 ft. 4 in. ; Pain 8/10; 18:45 BP 104 / 59; Pulse 46; Resp 17; Pulse Ox 100% on R/A; Pain 9/10; nj1 19:30 BP 95 / 51; Pulse 40; Resp 18; Pulse Ox 100% ; cp4 20:00 BP 114 / 82; Pulse 56; Resp 18; Pulse Ox 100% ; cp4 20:30 BP 95 / 56; Pulse 48; Resp 18; Pulse Ox 96% ; cp4 21:00 BP 96 / 49; Pulse 52; Resp 18; Pulse Ox 99% ; cp4 21:30 BP 94 / 51; Pulse 46; Resp 18; Pulse Ox 99% ; cp4 22:00 BP 104 / 56; Pulse 47; Resp 18; Pulse Ox 97% ; cp4 22:30 BP 100 / 55; Pulse 42; Resp 18; Pulse Ox 99% ; cp4 23:00 BP 95 / 53; Pulse 48; Resp 18; Temp 97; Pulse Ox 97% ; cp4 17:24 Body Mass Index 23.17 (61.23 kg, 162.56 cm) ll1 17:24 Pain Scale: Adult ll1 18:45 Pain Scale: Adult nj1 NIH Stroke Scale Scores: 18:42 NIHSS Score: 0 merissa MDM: 17:27 Patient medically screened. merissa 18:43 Differential Diagnosis: aortic aneurysm, cardiac arrhythmia, GI bleed, idiopathic merissa syncope, pseudo seizure, seizure, vasovagal episode. Data reviewed: vital signs, nurses notes, EMS record, lab test result(s), EKG, radiologic studies, CT scan, plain films. Consideration of Admission/Observation Patient was admitted/placed on observation. Escalation of care including admission/observation considered. I considered the following discharge prescriptions or medication management in the emergency department Medications were administered in the Emergency Department. See MAR. Independent interpretation of the following test(s) in the Emergency Department EKG: See my EKG interpretation above. Test considered but Not performed: Ultrasound NO 2 D ECHO. Historians other than the Patient: Spouse/Significant Other: WELL INFORMED. Care significantly affected by the following chronic conditions: HYPOTHYROID, LUMBAR FUSION, LOW BP, MIGRAINES. Counseling: I had a detailed discussion with the patient and/or guardian regarding the historical points, exam findings, and any diagnostic results supporting the discharge/admit diagnosis, lab results, radiology results, the need for further work-up and treatment in the hospital. 12/08 17:29 Order name: Basic Metabolic Panel; Complete Time: 20:28 merissa 12/08 17:29 Order name: CBC with Diff; Complete Time: 20:28 merissa 12/08 17:29 Order name: LFT's; Complete Time: 20:28 merissa 12/08 17:29 Order name: Magnesium; Complete Time: 20:28 12/08 17:29 Order name: NT PRO-BNP; Complete Time: 20:28 12/08 17:29 Order name: PT-INR; Complete Time: 20:28 merissa 12/08 17:29 Order name: Troponin HS; Complete Time: 20:28 merissa 12/08 17:29 Order name: Urinalysis w/ reflexes merissa 12/08 17:29 Order name: Lipase; Complete Time: 20:28 merissa 12/08 19:34 Order name: Thyroid Stimulating Hormone; Complete Time: 20:28 EDMS 12/08 19:39 Order name: Urinalysis w/ reflexes EDMS 12/08 19:39 Order name: CBC with Automated Diff EDMS 12/08 19:39 Order name: CBC with Automated Diff EDMS 12/08 19:39 Order name: Comprehensive Metabolic Panel [facility] 12/08 19:39 Order name: Comprehensive Metabolic Panel [facility] 12/08 19:39 Order name: Troponin High Sensitivity [facility] 12/08 19:39 Order name: Troponin High Sensitivity; Complete Time: 20:28 [facility] 12/08 19:39 Order name: Troponin High Sensitivity [facility] 12/08 19:39 Order name: Troponin High Sensitivity [facility] 12/08 20:16 Order name: T4 Free; Complete Time: 20:28 [facility] 12/09 13:47 Order name: Potassium [facility] 12/08 17:29 Order name: XRAY Chest (1 view); Complete Time: 20:28 [facility] 12/08 17:29 Order name: CT Traumagram (Head C Spine CAP wo con); Complete Time: 20:28 [facility] 12/08 17:57 Order name: Elbow Left 3 View; Complete Time: 20:28 [facility] 12/08 22:04 Order name: US [facility] 12/08 17:29 Order name: EKG; Complete Time: 17:30 [facility] 12/08 17:29 Order name: Cardiac monitoring; Complete Time: 18:55 [facility] 12/08 17:29 Order name: EKG - Nurse/Tech; Complete Time: 18:55 [facility] 12/08 17:29 Order name: IV Saline Lock; Complete Time: 18:55 [facility] 12/08 17:29 Order name: Labs collected and sent; Complete Time: 18:55 [facility] 12/08 17:29 Order name: O2 Per Protocol; Complete Time: 18:55 [facility] 12/08 17:29 Order name: O2 Sat Monitoring; Complete Time: 18:55 [facility] 12/08 17:29 Order name: IV Saline Lock - Large Bore; Complete Time: 18:53 [facility] 12/08 20:33 Order name: Misc. Order: juice; Complete Time: 20:35 [facility] EC:56 Rate is 41 beats/min. Rhythm is regular. QRS [place] is Normal. [place] interval is normal. QRS merissa interval is normal. QT interval is normal. No Q waves. T waves are Normal. ST Segment is depressed in leads II, III, aVF, V3, V4, V5, V6. Clinical impression: Abnormal EKG without significant change. Interpreted by me. Reviewed by me. Administered Medications: 20:29 Discontinued: ns 0.9% 1000 ml IV at 125 ml/hr continuous merissa 18:45 Drug: NS 0.9% IV 1000 ml IV at 1 bolus Per protocol; 1000 mL bolus Route: IV; Rate: 1 nj1 bolus; Site: right upper arm; 20:01 Follow up: IV Status: Completed infusion; IV Intake: 1000ml cp4 20:01 Follow up: Response: No adverse reaction cp4 18:48 Drug: Boostrix Tdap IM 0.5 ml IM once; as a single dose Route: IM; Site: right deltoid; nj1 18:55 Not Given (Product Out of Stock): tetanus toxoid,adsorbed0.5 ml IM once; Provide nj1 Vaccine Information Statement (VIS). 20:02 Drug: NS 0.9% IV 1000 ml IV at 125 ml/hr continuous Route: IV; Rate: 125 ml/hr; Site: [facility] right [facility] arm; 22:58 Follow up: Response: No adverse reaction; IV Status: Order to discontinue infusion cp4 20:59 Drug: Potassium PO Effervescent Tablet 50 mEq PO once; dissolve in 4 ounces of water or cp4 juice Route: PO; 22:58 Follow up: Response: No adverse reaction cp4 20:59 Drug: Potassium Chloride IV 20 mEq IV at per protocol once; administer over 1-2 hours cp4 Route: IV; Rate: per protocol; Site: right upper arm; 22:57 Follow up: Response: No adverse reaction; IV Status: Completed infusion cp4 21:34 Drug: Synthroid PO 200 mcg PO once Route: PO; cp4 22:58 Follow up: Response: No adverse reaction cp4 22:59 Drug: NS 0.9% with KCl IV 20 mEq/L 1000 ml IV at 125 ml/hr continuous Route: IV; Rate: cp4 125 ml/hr; Site: right upper arm; 23:45 Follow up: Response: No adverse reaction; IV Status: Infusion continued upon admission cp4 Disposition Summary: 12/09/23 18:48 Hospitalization Ordered Notes: Hospitalization Status: Observation merissa Provider: John Cabral merissa Condition: Fair merissa Problem: new merissa Symptoms: have improved merissa Bed/Room Type: Standard merissa Location: Telemetry/MedSurg (observation)(12/10/23 12:57) bd Room Assignment: [facility](12/10/23 12:57) bd Diagnosis - Fall on same level, unspecified merissa - Syncope Near merissa - Hypotension, unspecified - RESOLVED merissa - Migraine with aura, not intractable, without status migrainosus merissa - Dehydration merissa - Bradycardia, unspecified merissa - Tobacco abuse counseling merissa - Tobacco use merissa - Hypokalemia - 2.8 merissa - Hypothyroidism, unspecified merissa - Abnormal level of enzymes in specimens from digestive organs and abdominal cavity - merissa elevated lipase Forms: - Medication Reconciliation Form merissa - SBAR form merissa - Leadership Thank You Letter merissa NIH Stroke Scale - NIH Stroke Score Date: 12/09/2023 Time: 18:42 Total Score = 0 10. Dysarthria (speech clarity - read or repeat words) - 0(Normal) 11. Extinction and Inattention (visual/tactile/auditory/spatial/personal) - 0(No abnormality) 1a. Level of Consciousness (LOC) - 0(Alert) 1b. Level of Consciousness (LOC) (Month \T\ Age) - 0(Both) 1c. LOC Commands (Open \T\ Closes Eyes/Plastic Surgery Technician) - 0(Both) 2. Best Gaze (Lateral Gaze Paresis) - 0(Normal) 3. Visual Field Loss - 0(No visual loss) 4. Facial Palsy - 0(Normal) 5a. Left Arm: Motor (10-second hold) - 0(No drift) 5b. Right Arm: Motor (10-second hold) - 0(No drift) 6a. Left Leg: Motor (5-second hold - always test supine) - 0(No drift) 6b. Right Leg: Motor (5-second hold - always test supine) - 0(No drift) 7. Limb Ataxia (finger/nose \T\ heel/singh - test with eyes open) - 0(Absent) 8. Sensory Loss (pinprick arms/legs/face) - 0(Normal) 9. Best Language: Aphasia (description/naming/reading) - 0(No aphasia) Initials: merissa Signatures: Dispatcher [employer] EDMS Sophia Sheth Corey, MD MD cha Bryson, James, RN RN jb4 Kosta Romo RN RN ll1 Roxie Nath RN RN nj1 Rosa Smith cp4 Corrections: (The following items were deleted from the chart) 17:30 17:30 Head C Spine Cap Wo Con+CT.RAD.BRZ ordered. EDMS EDMS 17:57 17:30 Elbow Right 3 View+RAD.RAD.BRZ ordered. EDMS EDMS 19:34 19:21 THYROID STIMULAT HORMONE+C.LAB.BRZ ordered. EDMS EDMS 20:15 18:48 Telemetry/MedSurg (observation) merissa jb4 20:15 18:48 merissa jb4 12/09 12:57 12/08 20:15 [facility] jb4 bd 12/09 12:57 12/08 20:15 [facility]- jb4 bd
--- NOTE | 2023-12-09 18:48 | ER ---
Nurse's Notes [facility] Name: Dana Foster Age: 53 yrs Sex: Female : 1970 Arrival Date: 12/09/2023 Time: 17:09 Bed 23 Private MD: Diagnosis: Fall on same level, unspecified;Syncope Near;Hypotension, unspecified-RESOLVED;Migraine with aura, not intractable, without status migrainosus;Dehydration;Bradycardia, unspecified;Tobacco abuse counseling;Tobacco use;Hypokalemia-2.8;Hypothyroidism, unspecified;Abnormal level of enzymes in specimens from digestive organs and abdominal cavity-elevated lipase Presentation: 12/08 17:24 Chief complaint: Patient states: MADSEN for 3 days. Took a fioricet at 1300. 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 Suddenly got weak, nauseated, dizzy, then passed out. Chief complaint: EMS states: BP 95/76, HR 50. 22 G R hand with 300 ml bolus given en route. Abrasion R elbow, pain to back of scalp. Coronavirus screen: Client denies travel out of the [place] in the last 14 days. fatigue, nausea, Client presents with at least one sign or symptom that may indicate coronavirus-19. Standard/surgical mask placed on the client. Ebola Screen: Patient denies travel to an Ebola-affected area in the 21 days before illness onset. Initial Sepsis Screen: Does the patient meet any 2 criteria? No. Patient's initial sepsis screen is negative. Does the patient have a suspected source of infection? No. Patient's initial sepsis screen is negative. Risk Assessment: Do you want to hurt yourself or someone else? Patient reports no desire to harm self or others. Onset of symptoms was December 07, 2023. 17:24 Method Of Arrival: EMS ll1 17:24 Acuity: ALBAN 2 ll1 Triage Assessment: 17:30 General: Appears uncomfortable, Behavior is calm, cooperative, appropriate for age. ll1 Pain: Complains of pain in scalp Pain currently is 8 out of 10 on a pain scale. Quality of pain is described as aching. Neuro: Reports headache. Musculoskeletal: abrasion L elbow. 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 - Infectious Disease History:: Denies. - Social history:: Smoking status: Patient reports the use of cigarette tobacco products, smokes one-half pack cigarettes per day. - Family history:: not pertinent. Screenin:10 [facility] ED Fall Risk Assessment (Adult) History of falling in the last 3 months, nj1 including since admission Yes- physiologic fall (2 pts) Confusion or Disorientation No (0 pts) Intoxicated or Sedated No (0 pts) Impaired Gait No (0 pts) Mobility Assist Device Used No (0 pt) Altered Elimination No (0 pt) Score/Fall Risk Level 0 - 2 = Low Risk Oriented to surroundings, Maintained a safe environment, Hourly rounding (assess needs \T\ fall precautionary measures) done. 18:10 Abuse screen: Denies threats or abuse. Denies injuries from another. Nutritional nj1 screening: No deficits noted. Tuberculosis screening: No symptoms or risk factors identified. Assessment: 17:54 Reassessment: Not in room, in imaging. nj1 18:10 General: Appears in no apparent distress. comfortable, Behavior is calm, cooperative, nj1 appropriate for age. Pain: Complains of pain in head Pain currently is 9 out of 10 on a pain scale. Quality of pain is described as aching. 18:10 Neuro: Level of Consciousness is awake, alert, obeys commands, Oriented to person, nj1 place, time, situation, Reports headache. Cardiovascular: Patient's skin is warm and dry. Rhythm is sinus bradycardia. Respiratory: Airway is patent Respiratory effort is even, unlabored. Injury Description: Abrasion sustained to left elbow. Vital Signs: 17:24 BP 103 / 65; Pulse 50; Resp 17; Temp 97.4; Pulse Ox 100% ; Weight 61.23 kg; Height 5 ll1 ft. 4 in. ; Pain 8/10; 18:45 BP 104 / 59; Pulse 46; Resp 17; Pulse Ox 100% on R/A; Pain 9/10; nj1 19:30 BP 95 / 51; Pulse 40; Resp 18; Pulse Ox 100% ; cp4 20:00 BP 114 / 82; Pulse 56; Resp 18; Pulse Ox 100% ; cp4 20:30 BP 95 / 56; Pulse 48; Resp 18; Pulse Ox 96% ; cp4 21:00 BP 96 / 49; Pulse 52; Resp 18; Pulse Ox 99% ; cp4 21:30 BP 94 / 51; Pulse 46; Resp 18; Pulse Ox 99% ; cp4 22:00 BP 104 / 56; Pulse 47; Resp 18; Pulse Ox 97% ; cp4 22:30 BP 100 / 55; Pulse 42; Resp 18; Pulse Ox 99% ; cp4 23:00 BP 95 / 53; Pulse 48; Resp 18; Temp 97; Pulse Ox 97% ; cp4 17:24 Body Mass Index 23.17 (61.23 kg, 162.56 cm) ll1 17:24 Pain Scale: Adult ll1 18:45 Pain Scale: Adult nj1 NIH Stroke Scale Scores: 18:42 NIHSS Score: 0 [facility] ED Course: 17:23 Patient arrived in ED. ll1 17:27 Dez Lucero MD is Attending Physician. [facility] 17:30 Triage completed. ll1 17:30 Arm band placed on. ll1 17:54 Roxie Nath, RN is Primary Nurse. nj1 17:57 XRAY Chest (1 view) In Process Unspecified. EDMS 17:57 Elbow Left 3 View In Process Unspecified. EDMS 18:04 CT Traumagram (Head C Spine CAP wo con) In Process Unspecified. EDMS 18:10 Patient has correct armband on for positive identification. Bed in low position. Call nj1 light in reach. Provided Education on: call light, fall precautions. 18:40 Maintain EMS IV. Gauge \T\ site: 22 R hand. IV with fluids not infusing freely, without nj1 good blood return, IV discontinued, intact, bleeding controlled, Pressure dressing applied. 18:45 Inserted saline lock: 20 gauge in right upper arm, using aseptic technique. Blood nj1 collected. Ultrasound guided. Catheter tip well visualized within vasculature during placement. 18:46 John Cabral MD is Hospitalizing Provider. [facility] 19:05 Report given to Rosa GARZA. nj1 19:52 Thyroid Stimulating Hormone Sent. 3 23:38 No provider procedures requiring assistance completed. 4 12/09 07:27 Primary Nurse role handed off by Roxie Nath RN bd Administered Medications: 12/08 20:29 Discontinued: ns 0.9% 1000 ml IV at 125 ml/hr continuous merissa 18:45 Drug: NS 0.9% IV 1000 ml IV at 1 bolus Per protocol; 1000 mL bolus Route: IV; Rate: 1 nj1 bolus; Site: right upper arm; 20:01 Follow up: IV Status: Completed infusion; IV Intake: 1000ml cp4 20:01 Follow up: Response: No adverse reaction cp4 18:48 Drug: Boostrix Tdap IM 0.5 ml IM once; as a single dose Route: IM; Site: right deltoid; nj1 18:55 Not Given (Product Out of Stock): tetanus toxoid,adsorbed0.5 ml IM once; Provide nj1 Vaccine Information Statement (VIS). 20:02 Drug: NS 0.9% IV 1000 ml IV at 125 ml/hr continuous Route: IV; Rate: 125 ml/hr; Site: cp4 right upper arm; 22:58 Follow up: Response: No adverse reaction; IV Status: Order to discontinue infusion cp4 20:59 Drug: Potassium PO Effervescent Tablet 50 mEq PO once; dissolve in 4 ounces of water or cp4 juice Route: PO; 22:58 Follow up: Response: No adverse reaction cp4 20:59 Drug: Potassium Chloride IV 20 mEq IV at per protocol once; administer over 1-2 hours cp4 Route: IV; Rate: per protocol; Site: right upper arm; 22:57 Follow up: Response: No adverse reaction; IV Status: Completed infusion cp4 21:34 Drug: Synthroid PO 200 mcg PO once Route: PO; cp4 22:58 Follow up: Response: No adverse reaction cp4 22:59 Drug: NS 0.9% with KCl IV 20 mEq/L 1000 ml IV at 125 ml/hr continuous Route: IV; Rate: cp4 125 ml/hr; Site: right upper arm; 23:45 Follow up: Response: No adverse reaction; IV Status: Infusion continued upon admission cp4 Medication: 23:38 VIS not applicable for this client. cp4 Intake: 20:01 IV: 1000ml; Total: 1000ml. cp4 Outcome: 18:48 Decision to Hospitalize by Provider. merissa 23:39 Admitted to ER Hold. Please see [facility] for further documentation. cp4 23:39 Condition: stable 23:39 Instructed on the need for admit, 12/09 14:08 Patient left the ED. NIH Stroke Scale - NIH Stroke Score Date: 12/09/2023 Time: 18:42 Total Score = 0 10. Dysarthria (speech clarity - read or repeat words) - 0(Normal) 11. Extinction and Inattention (visual/tactile/auditory/spatial/personal) - 0(No abnormality) 1a. Level of Consciousness (LOC) - 0(Alert) 1b. Level of Consciousness (LOC) (Month \T\ Age) - 0(Both) 1c. LOC Commands (Open \T\ Closes Eyes/Social Work Lecturer) - 0(Both) 2. Best Gaze (Lateral Gaze Paresis) - 0(Normal) 3. Visual Field Loss - 0(No visual loss) 4. Facial Palsy - 0(Normal) 5a. Left Arm: Motor (10-second hold) - 0(No drift) 5b. Right Arm: Motor (10-second hold) - 0(No drift) 6a. Left Leg: Motor (5-second hold - always test supine) - 0(No drift) 6b. Right Leg: Motor (5-second hold - always test supine) - 0(No drift) 7. Limb Ataxia (finger/nose \T\ heel/singh - test with eyes open) - 0(Absent) 8. Sensory Loss (pinprick arms/legs/face) - 0(Normal) 9. Best Language: Aphasia (description/naming/reading) - 0(No aphasia) Initials: merissa Signatures: Dispatcher [employer] EDMS Sophia Sheth Corey, MD MD cha Williams, Irene, RN RN iw Lewis, Lynsay, RN RN ll1 Roxie Nath RN RN nj1 Rosa Smith cp4 Marixa Garcia3 Corrections: (The following items were deleted from the chart) 12/08 19:08 18:45 Inserted saline lock: 20 gauge in right upper arm, using aseptic nj1 technique. Blood collected. nj1
[2023-12-09 19:00] LABS: Absolute Basophils 0.1 K/uL (0-0.5); Absolute Eosinophils 0.2 K/uL (0-0.5); Absolute Lymphocytes (CBC) 1.4 K/uL (0.7-4.9); Absolute Monocytes 0.7 K/uL (0.1-1.3); Absolute Neutrophil 8.2 K/uL (1.8-8.0); Basophils % 0.7 % (0-1.3); Eosinophils % 1.6 % (0-4.4); Hematocrit 40.1 % (36.0-45.0); Hemoglobin 12.9 g/dL (12.0-15.0); Lymphocytes % 13.1 % (15.3-44.8); MCH 31.4 pg (27.0-35.0); MCHC 32.2 g/dL (32.0-36.0); MCV 97.5 fL (80-100); MPV 9.3 fL (7.6-11.3); Monocytes % 6.7 % (3.3-12.3); Neutrophils % 77.9 % (41.7-73.7); Platelets 254 thou/uL (152-406); RBC Red Blood Cell Count 4.11 M/uL (3.86-4.86); Red Cell Distribution Width 14.7 % (12.1-15.2)
[2023-12-09 19:04] LABS: PT Prothrombin Time 12.5 SECONDS (9.4-12.5); Protime INR 1.14
--- NOTE | 2023-12-09 19:05 | RAD REPORT ---
EXAM DESCRIPTION: Timi Single View12/09/2023 5:56 pm CLINICAL HISTORY: Chest pain COMPARISON: none FINDINGS: The lungs appear clear of acute infiltrate. The heart is normal size IMPRESSION: No acute abnormalities displayed
--- NOTE | 2023-12-09 19:06 | RAD REPORT ---
EXAM DESCRIPTION: RAD - Elbow Left 3 View - 12/09/2023 5:56 pm CLINICAL HISTORY: Left elbow pain status post trauma FINDINGS: No fracture or dislocation is seen.
[2023-12-09 19:26] LABS: AST/SGOT 12 U/L (15-37); Albumin 3.9 g/dL (3.4-5.0); Albumin/Globulin Ratio 1.1 (1.1-1.8); Alkaline Phosphatase 110 U/L (45-117); Anion Gap 7.8 mEq/L (5.0-15.0); BUN Blood Urea Nitrogen 9 mg/dL (7-18); Bicarbonate 29 mEq/L (21-32); Bilirubin Total 0.5 mg/dL (0.2-1.0); Globulin 3.6 g/dL (2.3-3.5); Glomerular Filtration Rate 74 ml/min (=/>90); Glucose Level 112 mg/dL (74-106); Lipase 1089 U/L (13-75); NT PRO-BNP 23 pg/mL (<125); Potassium 2.8 mEq/L (3.5-5.1); Protein, Total 7.5 g/dL (6.4-8.2); Sodium Level 135 mEq/L (136-145); Troponin High Sensitivity 4.1 pg/mL (<58.9)
[2023-12-09 19:28] LABS: ALT/SGPT < 14 U/L (13-56); Bilirubin Direct < 0.2 mg/dL (0-0.2); Bilirubin Indirect, Calculated 0.3 mg/dL (0.2-0.8)
[2023-12-09] MEDS ORDERED: ONDANSETRON 4 MG/2 ML VIAL IV PRN (19:33)
--- NOTE | 2023-12-09 19:33 | P.HP ---
Certification for Inpatient Patient admitted to: Observation With expected LOS: <2 Midnights Practitioner: I am a practitioner with admitting privileges, knowledge of patient current condition, hospital course, and medical plan of care. Services: Services provided to patient in accordance with Admission requirements found in Title 42 Section 412.3 of the Code of Federal Regulations Patient History Date of Service: 12/09/23 Reason for admission: Syncope History of Present Illness: 53 yrs old Female with past medical history of hypothyroidism presents with complaints of Syncope and Headache. Patient had a witnessed syncopal/collapse occurred at a store. This lasted for 20 seconds. Associated with headache. Denies any neck pain. Denies any chest pain or palpitation. Complains of lightheadedness. Patient had multiple previous episodes of similar kind. No fever or chills. Denies any dysuria. No nausea vomiting or diarrhea. Patient was assessed in the ER was admitted for further management of syncope Allergies ceftriaxone sodium [From Rocephin] Allergy (Mild, Verified 12/24/11 11:12) Itching Sulfa (Sulfonamide Antibiotics) [Sulfa(Sulfonamide Antibiotics)] Allergy (Mild, Verified 12/24/11 11:12) Hives vancomycin Allergy (Mild, Verified 12/24/11 11:12) Itching SULFA (SULFONAMIDES) Allergy (Uncoded 11/02/13 11:09) Unknown Home medications list reviewed: Yes - Past Medical/Surgical History Past Medical History: Reviewed- Non-Contributory -: Hypothyroidsm Past Surgical History: Reviewed- Non-Contributory - Family History Family History: Reviewed- Non-Contributory - Social History Smoking Status: Never smoker Review of Systems 10-point ROS is otherwise unremarkable Physical Examination - Vital Signs Temperature: 98.2 F Blood Pressure: 96/48 Pulse: 42 Respirations: 18 Pulse Ox (%): 94 - Physical Exam General: Alert, In no apparent distress, Oriented x3 HEENT: Atraumatic, Normocephalic Neck: Supple, 2+ carotid pulse no bruit Respiratory: Clear to auscultation bilaterally, Normal air movement Cardiovascular: No edema, Normal S1 S2, Other (Bradycardic) Capillary refill: <2 Seconds Gastrointestinal: Soft and benign, W/out hepatosplenomegaly Musculoskeletal: No clubbing, No swelling Integumentary: No rashes, No breakdown Neurological: Normal speech, Normal strength at 5/5 x4 extr, Cranial nerves 3-12 intact, Normal reflexes 2+ Lymphatics: No axilla or inguinal lymphadenopathy - Studies Laboratory Data (last 24 hrs) 12/09/23 12/09/23 12/09/23 18:45 18:45 18:45 WBC 10.50 Hgb 12.9 Hct 40.1 Plt Count 254 PT 12.5 INR 1.14 Sodium 135 L Potassium 2.8 L BUN 9 Creatinine 0.93 Glucose 112 H Magnesium 2.0 Total Bilirubin 0.5 AST 12 L ALT < 14 Alkaline Phosphatase 110 Lipase 1089 H Assessment and Plan - Problems (Diagnosis) (1) Syncope and collapse Current Visit: Yes Status: Acute Plan: Syncope and Collapse Monitor under Telemetry Patient noted to be bradycardic and hypotensive Will get orthostatic vital signs Syncopal Work up Cardiology consult Hypothyroidism TSH level elevated Will start on Synthroid Monitor TSH levels closely Dehydration IV hydration Bradycardia and hypotensive Patient states that her baseline heart rate is 40s Started on midodrine Will get a orthostatic vital signs Cardiology evaluation given multiple episodes of syncope and collapse GI/DVT prophylaxis Advance Directive : Full code Discharge Plan: Home Plan to discharge in: 48 Hours - Advance Directives Does patient have a Living Will: No Does patient have a Durable POA for Healthcare: No - Code Status/Comfort Care Code Status: Full Code Physician Review: Patient Assessed, Agree with Above Assessment and Plan Time Spent Managing Pts Care (In Minutes): 48
[2023-12-09] MEDS ORDERED: POTASSIUM 25 MEQ EFFERV TAB ONE (20:38)
[2023-12-09] MEDS ORDERED: KCL 20 MEQ/100 mL IVPB 100 ML IV ONE (20:38)
[2023-12-09] MEDS ORDERED: NS KCL 20MEQ 1,000 ML IV ONE (20:39)
[2023-12-09] MEDS: LEVOTHYROXINE SOD 0.1 MG TAB PO SCH (20:58)
[2023-12-09] MEDS: POTASSIUM 25 MEQ EFFERV TAB PO ONE (20:59)
[2023-12-09] MEDS: MIDODRINE HCL 5 MG TABLET PO ONE (21:25)
--- NOTE | 2023-12-09 22:04 | RAD REPORT ---
EXAM DESCRIPTION: USCarotid Artery Bilateral12/09/2023 9:52 pm CLINICAL HISTORY: syncope COMPARISON: None FINDINGS: The velocity of the right internal carotid artery equals 121 cm/sec. The right ICA/CCA rat io 1.2 The velocity of the left internal carotid artery equals 157 cm/sec. The left ICA/CCA ratio 1.6 Plaque within the carotid arteries is not seen Left internal carotid artery is tortuous likely accounting for mildly elevated velocity The vertebral arteries demonstrate antegrade flow IMPRESSION: No significant plaque seen within the arteries NASCET criteria used. Mild 0-49% stenosis Moderate 50-69% stenosis Severe 70-99% stenosis
[2023-12-09] MEDS ORDERED: ACETAMINOPHEN 325 MG TABLET ONE (22:22)
[2023-12-09] MEDS ORDERED: MIDODRINE HCL 5 MG TABLET ONE (22:22)
[2023-12-09] MEDS: ACETAMINOPHEN 325 MG TABLET PO PRN (22:28)
[2023-12-10] MEDS: MIDODRINE HCL 5 MG TABLET PO ONE (01:11)
[2023-12-10] MEDS ORDERED: MIDODRINE HCL 5 MG TABLET ONE (01:13)
[2023-12-10] MEDS ORDERED: NA CHLORIDE 0.9% 1,000 ML ONE (02:32)
[2023-12-10] MEDS ORDERED: ACETAMIN/CAFFEINE/BUTALB TAB PO ONE (03:38)
[2023-12-10] MEDS: ACETAMIN/CAFFEINE/BUTALB TAB PO PRN (03:41)
[2023-12-10 04:35] LABS: Specific Gravity 1.009 (1.005-1.030); Urine Bilirubin NEGATIVE (Negative); Urine Blood Negative (Negative); Urine Clarity Clear (Clear); Urine Color Colorless (Yellow); Urine Glucose NEGATIVE (Negative); Urine Ketones NEGATIVE (Negative); Urine Microscopic Reflex YN NO UMIC; Urine Nitrite NEGATIVE (Negative); Urine Protein NEGATIVE (Negative); Urine Urobilinogen Normal (Normal); Urine pH 6.5 (5.0-7.0)
[2023-12-10 05:21] LABS: Absolute Basophils 0.1 K/uL (0-0.5); Absolute Eosinophils 0.2 K/uL (0-0.5); Absolute Lymphocytes (CBC) 1.7 K/uL (0.7-4.9); Absolute Monocytes 0.6 K/uL (0.1-1.3); Absolute Neutrophil 4.7 K/uL (1.8-8.0); Basophils % 0.8 % (0-1.3); Eosinophils % 2.9 % (0-4.4); Hematocrit 32.8 % (36.0-45.0); Hemoglobin 11.1 g/dL (12.0-15.0); Lymphocytes % 22.9 % (15.3-44.8); MCH 32.8 pg (27.0-35.0); MCHC 33.9 g/dL (32.0-36.0); MCV 96.7 fL (80-100); MPV 9.7 fL (7.6-11.3); Monocytes % 8.3 % (3.3-12.3); Neutrophils % 65.1 % (41.7-73.7); Platelets 224 thou/uL (152-406); Red Cell Distribution Width 14.6 % (12.1-15.2)
[2023-12-10 05:36] LABS: Albumin 3.2 g/dL (3.4-5.0); Albumin/Globulin Ratio 1.1 (1.1-1.8); Alkaline Phosphatase 96 U/L (45-117); Anion Gap 6.3 mEq/L (5.0-15.0); BUN Blood Urea Nitrogen 8 mg/dL (7-18); Bicarbonate 29 mEq/L (21-32); Bilirubin Total 0.4 mg/dL (0.2-1.0); Glomerular Filtration Rate 107 ml/min (=/>90); Glucose Level 96 mg/dL (74-106); Potassium 3.3 mEq/L (3.5-5.1); Protein, Total 6.2 g/dL (6.4-8.2); Sodium Level 137 mEq/L (136-145)
[2023-12-10 05:38] LABS: ALT/SGPT < 14 U/L (13-56); AST/SGOT < 10 U/L (15-37)
[2023-12-10] MEDS: LEVOTHYROXINE SOD 0.125 MG TAB ONE (06:44)
--- NOTE | 2023-12-10 06:55 | P.PN ---
Date of Service: 12/10/23 Subjective chest pain relieved with prn analgesia, reports history of falling and chronic pain Review of Systems 10-point ROS is otherwise unremarkable Physical Examination - Vital Signs reviewed - Physical Exam General: Alert, In no apparent distress, Oriented x3 HEENT: Atraumatic, Normocephalic Neck: Supple, 2+ carotid pulse no bruit Respiratory: Equal unlabored, Normal air movement Cardiovascular: No edema, Normal S1 S2, bradycardia with mild hypotension Capillary refill: <2 Seconds Gastrointestinal: Soft and benign, W/out hepatosplenomegaly Musculoskeletal: No clubbing, No swelling, generalized weakness Neurological: Normal speech, Normal strength at 5/5 x4 extr, Lymphatics: No axilla or inguinal lymphadenopathy Assessment and Plan Syncope and Collapse Chest pain rule out IA Monitor under Telemetry Patient noted to be bradycardic and hypotensive Will get orthostatic vital signs Syncopal Work up Cardiology consult Hypothyroidism TSH level elevated Will start on Synthroid Monitor TSH levels closely Dehydration IV hydration Bradycardia and hypotensive Patient states that her baseline heart rate is 40s Started on midodrine Will get a orthostatic vital signs Cardiology evaluation given multiple episodes of syncope and collapse Chronic pain Fall As needed analgesia GI/DVT prophylaxis Advance Directive : Full code
[2023-12-10] MEDS: LEVOTHYROXINE SOD 0.125 MG TAB PO SCH (06:58)
[2023-12-10] MEDS: NA CHLORIDE 0.9% 1,000 ML IV SCH (06:58)
[2023-12-10] MEDS: POTASSIUM CL SA 10 MEQ TAB PO ONE (08:00)
[2023-12-10] MEDS ORDERED: POTASSIUM CL SA 10 MEQ TAB PO ONE (08:01)
[2023-12-10] MEDS ORDERED: ENOXAPARIN 40 MG/0.4 ML SQ ONE (08:01)
[2023-12-10] MEDS: ENOXAPARIN 40 MG/0.4 ML SQ SCH (08:08)
--- NOTE | 2023-12-10 10:36 | P.CNS ---
Date of Consult: 12/10/23 Chief Complaint: Syncope History of Present Illness: Patient with PMH of hashimotos thyroid disease, presented with syncope, report that she was shopping, she felt weak, dizzy and passed out, she has been out in the sun and did not drink enough fluid, associated symptoms is only headache. Allergies ceftriaxone sodium [From Rocephin] Allergy (Mild, Verified 12/24/11 11:12) Itching Sulfa (Sulfonamide Antibiotics) [Sulfa(Sulfonamide Antibiotics)] Allergy (Mild, Verified 12/24/11 11:12) Hives vancomycin Allergy (Mild, Verified 12/24/11 11:12) Itching SULFA (SULFONAMIDES) Allergy (Uncoded 11/02/13 11:09) Unknown Home Medications: Duloxetine [Cymbalta *] 60 mg PO DAILY 12/10/23 Gabapentin 100 mg PO BID 12/10/23 Levothyroxine [Synthroid*] 125 mcg PO DAILY 12/10/23 Trazodone [Desyrel*] 100 mg PO BEDTIME 12/10/23 - Past Medical/Surgical History -: Hypothyroidsm - Social History Smoking Status: Unknown if ever smoked Review of Systems 10-point ROS is otherwise unremarkable Physical Examination Temp Pulse Resp BP Pulse Ox 98.2 F 45 L 16 111/56 L 99 12/10/23 08:00 12/10/23 08:00 12/10/23 08:00 12/10/23 08:00 12/10/23 08:00 General: Alert, In no apparent distress HEENT: Atraumatic, PERRLA, Mucous membr. moist/pink, EOMI, Sclerae nonicteric Neck: Supple, 2+ carotid pulse no bruit, No LAD, Without JVD or thyroid abnormality Respiratory: Clear to auscultation bilaterally, Normal air movement Cardiovascular: Regular rate/rhythm, Normal S1 S2 Gastrointestinal: Normal bowel sounds, No tenderness Musculoskeletal: No tenderness Integumentary: No rashes Neurological: Normal gait, Normal speech, Normal tone, Normal affect Lymphatics: No axilla or inguinal lymphadenopathy Laboratory Data (last 24 hrs) 12/09/23 12/09/23 12/09/23 18:45 18:45 18:45 WBC 10.50 Hgb 12.9 Hct 40.1 Plt Count 254 PT 12.5 INR 1.14 Sodium 135 L Potassium 2.8 L BUN 9 Creatinine 0.93 Glucose 112 H Magnesium 2.0 Total Bilirubin 0.5 AST 12 L ALT < 14 Alkaline Phosphatase 110 Lipase 1089 H - Problems (1) Bradycardia Current Visit: Yes Status: Acute Plan: Tele reviewed and it shows sinus bradycardia, no pauses, most likely secondary to patient hypothyroidism, need better control of her thyroid problem (2) Syncope and collapse Current Visit: Yes Status: Acute Plan: Most likely orthostatic in nature secondary to dehydration, please get exercise stress test to check on patient HR response. please get echo also check orthostatic vitals and hydrate.
[2023-12-10] MEDS ORDERED: ACETAMINOPHEN 325 MG TABLET ONE (11:21)
[2023-12-10 13:47] LABS: Potassium 3.7 mEq/L (3.5-5.1); Troponin High Sensitivity 6.8 pg/mL (<58.9)
--- NOTE | 2023-12-10 13:49 | EKG ---
Test Date: 2023-12-09 Test Time: 18:51:33 Sieve Maker: MAN MEASUREMENT RESULTS: Intervals: Rate: 41 AR: 170 QRSD: 96 QT: 480 QTc: 396 [place]: P: 62 AR: 170 QRS: 86 T: 71 INTERPRETIVE STATEMENTS: Marked sinus bradycardia ST & T wave abnormality, consider inferior ischemia ST & T wave abnormality, consider anterolateral ischemia Abnormal ECG Compared to ECG 12/17/2013 16:29:29 ST (T wave) deviation now present Possible ischemia now present Sinus rhythm no longer present Electronically Signed On 12-10-23 13:47:57 CDT by Luis Fernando Jung
[2023-12-10] MEDS: FENTANYL CITR 100 MCG/2 ML IV ONE (14:48)
--- NOTE | 2023-12-10 14:48 | ECHO ---
HEIGHT: 5 ft 4 in WEIGHT: 135 lb 0 oz DATE OF STUDY: 12/10/[address]: Anton Cabral DO 2-DIMENSIONAL: YES M.MODE: YES DOPPLER: YES COLOR FLOW: YES TDS: PORTABLE: YES DEFINITY: BUBBLE STUDY: DIAGNOSIS: SYNCOPE CARDIAC HISTORY: CATHERIZATION: NO SURGERY: NO PROSTHETIC VALVE: NO PACEMAKER: NO MEASUREMENTS (cm) DIASTOLIC (NORMALS) SYSTOLIC (NORMALS) IVSd 0.7 (0.6-1.2) LA Diam 3.5 (1.9-4.0) LVEF 60-65% LVIDd 4.2 (3.5-5.7) LVIDs 2.6 (2.0-3.5) %FS 38% LVPWd 0.9 (0.6-1.2) Ao Diam 2.6 (2.0-3.7) 2 DIMENSIONAL ASSESSMENT: RIGHT ATRIUM: NORMAL LEFT ATRIUM: NORMAL RIGHT VENTRICLE: NORMAL LEFT VENTRICLE: NORMAL TRICUSPID VALVE: NORMAL MITRAL VALVE: NORMAL PULMONIC VALVE: NORMAL AORTIC VALVE: NORMAL PERICARDIAL EFFUSION: NONE AORTIC ROOT: NORMAL LEFT VENTRICULAR WALL MOTION: NORMAL DOPPLER/COLOR FLOW: NORMAL COMMENTS: 1. NORMAL LEFT VENTRICULAR SYSTOLIC FUCNTION, EJECTION FRACTION 60-65%, NORMAL WALL MOTION 2. NORMAL DIASTOLIC FUNCTION 3. MILD ELEVATED FILLING PRESSURE (RIGHT ATRIUM 5-10 mmHg) TECHNOLOGIST: DARLENE EISENBERG
[2023-12-10] MEDS: dexAMETHasone 4 MG/ML VIAL IV SCH (16:51)
[2023-12-10] MEDS: FENTANYL CITR 100 MCG/2 ML IV PRN (20:19)
[2023-12-10 23:55] VITALS: BMI 23.1
[2023-12-11] MEDS: DIAZEPAM 10 MG/2 ML INJ SYRINGE IV ONE (08:43)
[2023-12-11] MEDS: KETOROLAC 30 MG/ML INJ IV ONE (08:43)
[2023-12-11 09:55] VITALS: O2SAT 97
--- NOTE | 2023-12-11 10:56 | P.PN ---
Subjective Date of Service: 12/11/23 Chief Complaint: Syncope Subjective: No new changes, No C/O voiced, Tolerating diet, Ambulating, Improving Review of Systems 10-point ROS is otherwise unremarkable Physical Examination - Vital Signs Temperature: 97.5 F Blood Pressure: 119/56 Pulse: 44 Respirations: 16 Pulse Ox (%): 98 - Physical Exam General: Alert, In no apparent distress HEENT: Atraumatic, PERRLA, EOMI Neck: Supple, JVD not distended Respiratory: Clear to auscultation bilaterally, Normal air movement Cardiovascular: Regular rate/rhythm, Normal S1 S2 Gastrointestinal: Normal bowel sounds, No tenderness Musculoskeletal: No tenderness Integumentary: No rashes Neurological: Normal speech, Normal tone, Normal affect Lymphatics: No axilla or inguinal lymphadenopathy - Studies Medications List Reviewed: Yes Assessment And Plan - Current Problems (Diagnosis) (1) Bradycardia Current Visit: Yes Status: Acute Plan: Tele reviewed and it shows sinus bradycardia, no pauses, most likely secondary to patient hypothyroidism, need better control of her thyroid problem (2) Syncope and collapse Current Visit: Yes Status: Acute Plan: Most likely orthostatic in nature secondary to dehydration, patient is having lot of back pain and feel can not do the stress test today, advised her that she will need to follow up as outpatient so we can get it done at office. Physician Review: Patient Assessed, Agree with Above Assessment and Plan
[2023-12-11 12:06] VITALS: BP 129/58; TEMP 97.8
--- NOTE | 2023-12-11 14:12 | P.DS ---
Admission Date: 12/09/23 Discharge Date: 12/11/23 Disposition: ROUTINE DISCHARGE Discharge Condition: GOOD Reason for Admission: Syncope Brief History of Present Illness: 53 yrs old Female with past medical history of hypothyroidism presents with complaints of Syncope and Headache. Patient had a witnessed syncopal/collapse occurred at a store. This lasted for 20 seconds. Associated with headache. Denies any neck pain. Denies any chest pain or palpitation. Complains of lightheadedness. Patient had multiple previous episodes of similar kind. No fever or chills. Denies any dysuria. No nausea vomiting or diarrhea.Patient was assessed in the ER was admitted for further management of syncope - Physical Exam General: Alert, In no apparent distress, Oriented x3 HEENT: Atraumatic, Normocephalic Neck: Supple, 2+ carotid pulse no bruit Respiratory: Clear to auscultation bilaterally, Normal air movement Cardiovascular: No edema, Normal S1 S2, Other (Bradycardic) Capillary refill: <2 Seconds Gastrointestinal: Soft and benign, W/out hepatosplenomegaly Musculoskeletal: No clubbing, No swelling Integumentary: No rashes, No breakdown Neurological: Normal speech, Normal strength at 5/5 x4 extr, Cranial nerves 3-12 intact, Normal reflexes 2+ Lymphatics: No axilla or inguinal lymphadenopathy Hospital Course: 53 yrs old Female with past medical history of chronic pain, hypothyroidism presents with complaints of chest pain, syncope and Headache. Patient had a witnessed syncopal/collapse occurred at a store. This lasted for 20 seconds. Was noted to have syncope, chronic pain. Condition improved with as needed analgesics, antiemetics, muscle relaxers. Patient tolerating diet, stable for discharge to home with follow-up appointment with primary care physician. Needs to follow-up with orthopedics outpatient. Follow-up with cardiology outpatient for worsening chest pain PROBLEM: Syncopal episode with a fall, headache Chest pain-serial troponins negative, Hypothyroidism, Bradycardia likely secondary to hypothyroidism, Chronic pain, discharge home with p.o. analgesics, muscle relaxers, antianxiety meds Rad/Lab/Micro: Computed axial tomography of head, neck, chest, abdomen and pelvis obtained. IV and oral contrast not requested. Coronal and sagittal reconstruction performed IMPRESSION: No acute intracranial abnormality is seen. A cervical fracture is not visualized. If the patient continues to have symptoms to suggest intracranial/spinal cord pathology MRI be recommended No acute traumatic abnormality involving the chest, abdomen or pelvis Echocardiogram COMMENTS: 1. NORMAL LEFT VENTRICULAR SYSTOLIC FUCNTION, EJECTION FRACTION 60-65%, NORMAL WALL MOTION 2. NORMAL DIASTOLIC FUNCTION 3. MILD ELEVATED FILLING PRESSURE (RIGHT ATRIUM 5-10 mmHg) Carotid ultrasound IMPRESSION: No significant plaque seen within the arteries NASCET criteria used. Mild 0-49% stenosis Moderate 50-69% stenosis Severe 70-99% stenosis Lumbar spine next Continue home medicines as previously prescribed GOAL: Clear understanding of disease process INSTRUCTIONS: Physician Discharge Instructions: -Follow-up with PCP in 1 to 2 weeks -Please call Dr. Tomas at [phone] if any questions regarding hospital stay -Please call nursing station at [phone] if any nursing or medication questions -Return to the emergency room if symptoms worsen Diet: ADA, low sodium Activity: Fall precautions Vital Signs/Physical Exam: Temp Pulse Resp BP Pulse Ox 97.8 F 42 L 14 129/58 L 100 12/11/23 11:57 12/11/23 11:57 12/11/23 11:57 12/11/23 11:57 12/11/23 11:57 Laboratory Data at Discharge: WBC 7.20 thou/uL (4.3-10.9) 12/10/23 04:55 Hgb 11.1 g/dL (12.0-15.0) L D 12/10/23 04:55 Hct 32.8 % (36.0-45.0) L 12/10/23 04:55 Plt Count 224 thou/uL (152-406) 12/10/23 04:55 PT 12.5 SECONDS (9.4-12.5) 12/09/23 18:45 INR 1.14 12/09/23 18:45 Sodium 137 mEq/L (136-145) 12/10/23 04:55 Potassium 3.7 mEq/L (3.5-5.1) 12/10/23 13:04 Potassium Cancelled 12/10/23 13:04 BUN 8 mg/dL (7-18) 12/10/23 04:55 Creatinine 0.63 mg/dL (0.55-1.02) 12/10/23 04:55 Glucose 96 mg/dL (74-106) 12/10/23 04:55 Magnesium 2.0 mg/dL (1.6-2.4) 12/09/23 18:45 Total Bilirubin 0.4 mg/dL (0.2-1.0) 12/10/23 04:55 AST < 10 U/L (15-37) L 12/10/23 04:55 ALT < 14 U/L (13-56) 12/10/23 04:55 Alkaline Phosphatase 96 U/L (45-117) 12/10/23 04:55 Lipase 1089 U/L (13-75) H 12/09/23 18:45 Home Medications: Duloxetine [Cymbalta *] 60 mg PO DAILY 12/10/23 Gabapentin 100 mg PO BID 12/10/23 Levothyroxine [Synthroid*] 125 mcg PO DAILY 12/10/23 Trazodone [Desyrel*] 100 mg PO BEDTIME 12/10/23 Hydrocodone 10/APAP 325 [[place] 10/325] 1 tab PO Q6H PRN #30 tab 12/11/23 Hydrocodone 10/APAP 325 [[place] 10/325] 1 tab PO Q6H PRN #30 tab 12/11/23 Hydrocodone 10/APAP 325 [[place] 10/325] 1 tab PO Q6H PRN #30 tab 12/11/23 Hydrocodone 10/APAP 325 [[place] 10/325] 1 tab PO Q6H PRN #30 tab 12/11/23 Methylprednisolone [Medrol dosepack] 4 mg PO DIRECTED #1 ern[place] 12/11/23 clonazePAM [Klonopin] 1 mg PO BID #30 tab 12/11/23 clonazePAM [Klonopin] 1 mg PO BID PRN #30 tab 12/11/23 clonazePAM [Klonopin] 1 mg PO BID PRN #30 tab 12/11/23 clonazePAM [Klonopin] 1 mg PO BID PRN #30 tab 12/11/23 New Medications: clonazePAM [Klonopin] 1 mg PO BID PRN #30 tab PRN Reason: Anxiety clonazePAM [Klonopin] 1 mg PO BID PRN #30 tab PRN Reason: Anxiety clonazePAM [Klonopin] 1 mg PO BID PRN #30 tab PRN Reason: Anxiety clonazePAM [Klonopin] 1 mg PO BID #30 tab Methylprednisolone [Medrol dosepack] 4 mg PO DIRECTED #1 [place] Hydrocodone 10/APAP 325 [[place] 10/325] 1 tab PO Q6H PRN #30 tab PRN Reason: Pain Hydrocodone 10/APAP 325 [[place] 10/325] 1 tab PO Q6H PRN #30 tab PRN Reason: Pain Hydrocodone 10/APAP 325 [[place] 10/325] 1 tab PO Q6H PRN #30 tab PRN Reason: Pain Hydrocodone 10/APAP 325 [[place] 10/325] 1 tab PO Q6H PRN #30 tab PRN Reason: Pain Physician Discharge Instructions: 53 yrs old Female with past medical history of chronic pain, hypothyroidism presents with complaints of chest pain, syncope and Headache. Patient had a witnessed syncopal/collapse occurred at a store. This lasted for 20 seconds. Was noted to have syncope, chronic pain. Condition improved with as needed analgesics, muscle relaxers. Patient tolerating diet, stable for discharge to home with follow-up appointment with primary care physician. Needs to follow-up with orthopedics outpatient. Follow-up with cardiology outpatient for worsening chest pain PROBLEM: Syncopal episode with a fall, headache Chest pain-serial troponins negative, follow-up with cardiology outpatient Hypothyroidism, follow-up with primary care for close monitoring of hypothyroidism Bradycardia likely secondary to hypothyroidism, Chronic pain, discharge home with p.o. analgesics, muscle relaxers, antianxiety meds Rad/Lab/Micro: Computed axial tomography of head, neck, chest, abdomen and pelvis obtained. IV and oral contrast not requested. Coronal and sagittal reconstruction performed IMPRESSION: No acute intracranial abnormality is seen. A cervical fracture is not visualized. If the patient continues to have symptoms to suggest intracranial/spinal cord pathology MRI be recommended No acute traumatic abnormality involving the chest, abdomen or pelvis Echocardiogram COMMENTS: 1. NORMAL LEFT VENTRICULAR SYSTOLIC FUCNTION, EJECTION FRACTION 60-65%, NORMAL WALL MOTION 2. NORMAL DIASTOLIC FUNCTION 3. MILD ELEVATED FILLING PRESSURE (RIGHT ATRIUM 5-10 mmHg) Carotid ultrasound IMPRESSION: No significant plaque seen within the arteries NASCET criteria used. Mild 0-49% stenosis Moderate 50-69% stenosis Severe 70-99% stenosis Lumbar spine next Continue home medicines as previously prescribed GOAL: Clear understanding of disease process INSTRUCTIONS: Physician Discharge Instructions: -Follow-up with PCP in 1 to 2 weeks -Please call Dr. Tomas at [phone] if any questions regarding hospital stay -Please call nursing station at [phone] if any nursing or medication questions -Return to the emergency room if symptoms worsen Diet: ADA, low sodium Activity: Fall precautions Diet: AHA Activity: Fall precautions Followup: Carla Torres, TIO [Primary Care Provider] - 1-2 Weeks (call for appointment.) Favian Moses MD [ACTIVE - CAN ADMIT] - 1 Week (call for appointment.) Time spent managing pt's care (in minutes): 55
== END 2023-12-11 11:54 | disposition home or self-care (01) ==
LOC: ER 17:09 → ERHOLD 19:33 → 2ND 12-10 13:32
PROVIDERS: ADMIT Family Medicine; ATTEND Hospitalist
DX: R55 Syncope and collapse (principal); E03.9 Hypothyroidism, unspecified; R00.1 Bradycardia, unspecified; E86.0 Dehydration; I95.9 Hypotension, unspecified; R07.9 Chest pain, unspecified; M54.9 Dorsalgia, unspecified; G43.109 Migraine with aura, not intractable, without status migrainosus; G89.29 Other chronic pain; E06.3 Autoimmune thyroiditis; F17.210 Nicotine dependence, cigarettes, uncomplicated; R85.0 Abnormal level of enzymes in specimens from digestive organs and abdominal cavity; W18.30XA Fall on same level, unspecified, initial encounter; Y93.89 Activity, other specified; Y92.513 Shop (commercial) as the place of occurrence of the external cause; Z71.6 Tobacco abuse counseling; Z88.2 Allergy status to sulfonamides; Z88.1 Allergy status to other antibiotic agents
CPT/HCPCS: 36415; 70450; 71045; 71250; 72125; 80048; 80053; 80076; 81003; 83690; 83735; 83880; 84132; 84439; 84443; 84484; 85025; 85610; 93005; 93306; 93880; 94760; 96361; 96365; 96366; 96372; 99285; G0378; J1100; J1650; J3010; J3360; J3480; J7030